=== PATIENT | male | born 1955 | race Caucasian/White ===

== ENCOUNTER → 2018-02-01 14:36 | Outpatient (CLI) | payer MEDICAID, SELFPAY | PROVIDERS: Visit Provider Internal Medicine Cardiovascular Disease | DX: R55 Syncope and collapse (principal) | CPT/HCPCS: 93225; 93226 ==

== ENCOUNTER → 2018-04-03 14:22 | Outpatient (REF) | payer MEDICAID, SELFPAY ==
[2018-04-03 17:30] LABS: Basophils % 0.5 % (0.1-2.0); Eosinophils # 0.2 K/mm3 (0.0-0.4); Eosinophils % 2.8 % (0.1-12.0); Hematocrit 42.4 % (42.0-52.0); Hemoglobin 13.9 g/dL (14.1-18.0); Lymphocytes # 1.5 K/mm3 (0.7-4.5); Lymphocytes % 24.3 K/mm3 (10-50); Mean Corpuscular HGB Conc 32.8 g/dL (31.8-35.4); Mean Corpuscular Hemoglobin 29.1 pg (27.0-31.2); Mean Corpuscular Volume 88.8 fl (80-94); Mean Platelet Volume 7.7 fl (7.4-10.4); Monocytes # 0.3 K/mm3 (0.1-1.0); Monocytes % 5.1 % (1.7-9.3); Neutrophils # 4.1 K/mm3 (1.8-7.8); Neutrophils % 67.4 % (37.0-80.0); Platelet Count 310 K/mm3 (142-424); Red Blood Count 4.78 M/mm3 (4.60-6.20); Red Cell Distribution Width 14.3 % (11.5-17.5); White Blood Count 6.1 K/mm3 (4.8-10.8)
[2018-04-03 17:45] LABS: Hemoglobin A1C 9.7 % (0.0-7.0)
[2018-04-03 18:14] LABS: Alanine Aminotransferase 37 U/L (12-78); Albumin/Globulin Ratio 0.8 (1.1-1.8); Alkaline Phosphatase 121 U/L (46-116); Anion Gap 10.7 mEq/L (5-15); Aspartate Amino Transferase 28 U/L (15-37); Bilirubin,Total 0.4 mg/dL (0.2-1.0); Blood Urea Nitrogen 19 mg/dL (7-18); Calcium 9.2 mg/dL (8.5-10.1); Carbon Dioxide 31 mmol/L (21.0-32.0); Chloride 101 mmol/L (98-107); Chol/HDL Ratio 3.5 (1-3.5); Cholesterol 205 mg/dL (140-200); Estimated Glomerular Filt Rate 51 ml/min (>60); GFR (African American) 62 ML/MIN (>60); Globulin 3.6 gm/dl (1.3-3.2); Glucose 284 mg/dL (74-106); HDL Cholesterol 59 mg/dL (27-67); LDL Cholesterol 124 mg/dL (0-130); Potassium 4.7 mmoL/L (3.5-5.1); Sodium 138 mmol/L (136-145); Thyroid Stimulating Hormone 2.63 uIU/ml (0.358-3.740); Total Protein,Serum 6.6 gm/dL (6.4-8.2); Triglycerides 111 mg/dL (30-200); VLDL Cholesterol 22 mg/dL (0-40)
[2018-04-07 12:53] LABS: Vitamin D 25 Hydroxy 22.1 ng/mL (30.0-100.0)
[2018-04-07 12:55] LABS: Creatinine, Urine 99.8 mg/dL (Not Estab.)
== END ==
LOC: LAB 14:22
PROVIDERS: Visit Provider Nurse Practitioner Family
DX: E11.9 Type 2 diabetes mellitus without complications (principal); R53.83 Other fatigue
CPT/HCPCS: 80053; 80061; 82043; 82570; 82652; 83036; 84443; 85025

== ENCOUNTER → 2018-04-09 12:51 | Outpatient (CLI) | payer MEDICAID, SELFPAY ==
--- NOTE | 2018-04-09 12:54 | MR_ITS ---
MR head/brain wo con HISTORY: Syncope and collapse, dizziness, off balance, headache and blurred vision ITS.REASON: syncope ORDERING PHYSICIAN: Sharri Gusman MD PATIENT AGE: 62 years Comparison: 01/18/2018 TECHNIQUE: Standard multiplanar multiecho sequences are performed without contrast. FINDINGS: No midline shift, mass effect, intracranial hemorrhage, or hydrocephalus. No evidence of acute infarction. There are encephalomalacia changes in the inferior aspect of the left cerebellar hemisphere consistent with an old infarction. There are a few scattered periventricular and subcortical T2 white matter hyperintensities nonspecific. There are a few perivascular dilated spaces within the basal ganglia. The hippocampal right are unremarkable in the temporal horns are symmetric. The pituitary and optic chiasm are unremarkable. No cerebellar ectopia. The upper cervical cord has an unremarkable appearance. The cerebellopontine angle, cerebellum, and brainstem are unremarkable. No mastoid effusion or sinus air-fluid level. Mild mucosal thickening involves the ethmoid sinuses on the left. There is a 2.3 cm area of heterogeneous signal intensity in the scalp on the right in the parietal area of questionable clinical significance. Please correlate with direct visualization. IMPRESSION: 1. No acute intracranial finding. 2. 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
== END ==
PROVIDERS: Family Provider Family Medicine; PCP Nurse Practitioner Family; Visit Provider Specialist
DX: E11.43 Type 2 diabetes mellitus with diabetic autonomic (poly)neuropathy (principal); I63.439 Cerebral infarction due to embolism of unspecified posterior cerebral artery; K21.9 Gastro-esophageal reflux disease without esophagitis; K31.84 Gastroparesis; R55 Syncope and collapse
CPT/HCPCS: 70551

== ENCOUNTER → 2018-09-19 09:24 | Outpatient (CLI) | payer MEDICAID, SELFPAY ==
--- NOTE | 2018-09-19 09:30 | US_ITS ---
US abdomen complete HISTORY: ITS.REASON: pain ORDERING PHYSICIAN: Fatuma Hernandez PATIENT AGE: 62 years COMPARISON: None FINDINGS: PANCREAS:Unremarkable. No obvious mass or abnormal fluid collection. No ductal dilatation LIVER:No focal liver lesions demonstrated. Homogeneous echogenicity. No intrahepatic biliary ductal dilatation evident. There is increase echogenicity of the liver consistent with fatty liver RIGHT KIDNEY:Unremarkable. Normal size and echogenicity. No hydronephrosis LEFT KIDNEY:Unremarkable. No hydronephrosis. Normal size and echogenicity. GALLBLADDER: The gallbladder is contracted and contains sludge. No stones are apparent. No gallbladder wall thickening or pericholecystic fluid. AORTA:No evidence of aneurysmal dilatation. SPLEEN:Borderline splenomegaly at 13 cm ASCITES:None demonstrated. IMPRESSION: 1. Fatty liver and borderline splenomegaly. 2. Contracted gallbladder with sludge
== END ==
PROVIDERS: PCP Nurse Practitioner Family; Visit Provider Nurse Practitioner Family
DX: R10.84 Generalized abdominal pain (principal)
CPT/HCPCS: 76700

== ENCOUNTER → 2018-10-03 09:48 | Outpatient (CLI) | payer MEDICAID, SELFPAY ==
--- NOTE | 2018-10-03 09:49 | NM_ITS ---
NM hepatobiliary w pharm HISTORY: Right upper quadrant pain. ITS.REASON: gallbladder sludge ORDERING PHYSICIAN: Fatuma Hernandez PATIENT AGE: 62 years COMPARISON: None DOSE: 7.82 mCi Tc Choletec. 2.3 MCG CCK HIDA under HISTORY: Right upper quadrant pain & nausea Following 7.28 millicuries Tc Choletec, images of the right upper quadrant were obtained. There is prompt uptake of radionuclide by the liver which is grossly unremarkable. Homogeneous appearance at liver,. Activity Common duct promptly visualized. Small bowel activity visualized. This initial pre-CCK portion of the study is normal. The gallbladder was allowed to fill out to 50 to 60 minutes which point 2.3 MCG micrograms CCK was administered by way infusion pump in the typical fashion. This results in87% percent fraction (normal greater than 50%; borderline 35-50%). Visual inspection confirmed robust at least 87% gallbladder ejection. Patient reported Minimal discomfort and pain with CCK administration IMPRESSION: 1. Normal functioning gallbladder . Robust 87% gallbladder ejection fraction following CCK. 2. Normal hepatobiliary scan
--- NOTE | 2018-10-03 12:17 | HMH.ITSHM ---
Current Home Medications as stated by this patient Franck Lam or lead generation representative. []TAMSULOSIN RANITIDINE OXYCODONE OMEPRAZOLE NITRO LISINOPRIL LEVOTHYROXINE ISOSORBIDE INSULIN GABAPENTIN FENOFIBRATE CETIRIZINE ATENOLOL ASA ESOMEPRAZOLE VITAMIN D2
== END ==
PROVIDERS: PCP Nurse Practitioner Family; Visit Provider Nurse Practitioner Family
DX: K82.8 Other specified diseases of gallbladder (principal); R10.9 Unspecified abdominal pain
CPT/HCPCS: 78227

== ENCOUNTER → 2018-12-09 17:57 | Outpatient (CLI) | payer MEDICAID, SELFPAY ==
[2018-12-09 18:44] LABS: Basophils # 0.1 K/mm3 (0-0.2); Basophils % 0.6 % (0.1-2.0); Eosinophils # 0.2 K/mm3 (0.0-0.4); Eosinophils % 2.1 % (0.1-12.0); Hematocrit 38.9 % (42.0-52.0); Hemoglobin 13.5 g/dL (14.1-18.0); Lymphocytes # 1.5 K/mm3 (0.7-4.5); Lymphocytes % 18.2 % (10-50); Mean Corpuscular HGB Conc 34.7 g/dL (31.8-35.4); Mean Corpuscular Hemoglobin 29.7 pg (27.0-31.2); Mean Corpuscular Volume 85.6 fl (80-94); Mean Platelet Volume 7.5 fl (7.4-10.4); Monocytes # 0.4 K/mm3 (0.1-1.0); Neutrophils # 5.9 K/mm3 (1.8-7.8); Neutrophils % 74.1 % (37.0-80.0); Platelet Count 263 K/mm3 (142-424); Red Blood Count 4.55 M/mm3 (4.60-6.20); Red Cell Distribution Width 13.3 % (11.5-17.5)
[2018-12-09 19:16] LABS: Alanine Aminotransferase 28 U/L (12-78); Albumin Level 2.7 gm/dL (3.4-5.0); Albumin/Globulin Ratio 0.8 (1.1-1.8); Alkaline Phosphatase 90 U/L (46-116); Anion Gap 14.1 mEq/L (5-15); Aspartate Amino Transferase 23 U/L (15-37); Bilirubin,Total 0.5 mg/dL (0.2-1.0); Blood Urea Nitrogen 27 mg/dL (7-18); Calcium 8.8 mg/dL (8.5-10.1); Carbon Dioxide 26 mmol/L (21.0-32.0); Chloride 102 mmol/L (98-107); Chol/HDL Ratio 3.6 (1-3.5); Cholesterol 200 mg/dL (140-200); Creatinine,Serum 1.78 mg/dL (0.70-1.30); Estimated Glomerular Filt Rate 39 ml/min (>60); GFR (African American) 47 ML/MIN (>60); Globulin 3.2 gm/dl (1.3-3.2); Glucose 311 mg/dL (74-106); HDL Cholesterol 56 mg/dL (27-67); LDL Cholesterol 112 mg/dL (0-130); Potassium 4.1 mmoL/L (3.5-5.1); Sodium 138 mmol/L (136-145); T4 (Thyroxine) 7.5 ug/dl (4.7-13.3); Total Protein,Serum 5.9 gm/dL (6.4-8.2); Triglycerides 159 mg/dL (30-200); VLDL Cholesterol 32 mg/dL (0-40)
[2018-12-09 19:23] LABS: Hemoglobin A1C 11.2 % (0.0-7.0)
[2018-12-12 08:08] LABS: Vitamin D 25 Hydroxy 26.3 ng/mL (30.0-100.0)
== END ==
PROVIDERS: Visit Provider Nurse Practitioner Family
DX: E11.9 Type 2 diabetes mellitus without complications (principal); Z79.4 Long term (current) use of insulin; E55.9 Vitamin D deficiency, unspecified
CPT/HCPCS: 80053; 80061; 82652; 83036; 84436; 84443; 85025

== ENCOUNTER → 2019-05-07 10:04 | Outpatient (CLI) | payer MEDICAID, SELFPAY ==
--- NOTE | 2019-05-07 10:18 | XR_ITS ---
PROCEDURE: XR FOOT WT BEARING RT 3V CLINICAL INDICATION: diabetic foot COMPARISON: No exams were available for comparison FINDINGS: No fracture or dislocation. No lytic or blastic change. There is normal mineralization. The joint spaces are well-preserved. No significant degenerative/arthritic changes. No erosive changes evident. Other findings:Bandage artifact overlies the metatarsophalangeal junction dorsally. There is diffuse vascular calcification. No obvious bony destructive process. There is an os cuboid within accessory coarse calcification lateral to the cuboid and may be related to heterotopic ossification. IMPRESSION: Vascular calcification. Unusual well-circumscribed soft tissue calcification lateral to the cuboid Dictated by: Lalo Kelly MD 05/07/2019 13:13 Electronically signed by Lalo Kelly MD in [place] 05/07/2019 13:13
--- NOTE | 2019-05-07 10:18 | XR_ITS ---
PROCEDURE: XR FOOT WT BEARING LT 3V CLINICAL INDICATION: diabetic foot Foot pain COMPARISON: No exams were available for comparison FINDINGS: No fracture or dislocation. No lytic or blastic change. There is normal mineralization. The joint spaces are well-preserved. No significant degenerative/arthritic changes. No erosive changes evident. Other findings:There is diffuse vascular calcification. IMPRESSION: No acute findings. Dictated by: Lalo Kelly MD 05/07/2019 13:10 Electronically signed by Lalo Kelly MD in [place] 05/07/2019 13:10
[2019-05-07 11:07] LABS: Basophils % 0.6 % (0.1-2.0); Eosinophils # 0.1 K/mm3 (0.0-0.4); Eosinophils % 2.3 % (0.1-12.0); Hematocrit 33.5 % (42.0-52.0); Hemoglobin 10.2 g/dL (14.1-18.0); Lymphocytes # 0.8 K/mm3 (0.7-4.5); Lymphocytes % 12.5 % (10-50); Mean Corpuscular HGB Conc 30.5 g/dL (31.8-35.4); Mean Corpuscular Hemoglobin 28.3 pg (27.0-31.2); Mean Corpuscular Volume 92.7 fl (80-94); Mean Platelet Volume 7.6 fl (7.4-10.4); Monocytes # 0.4 K/mm3 (0.1-1.0); Monocytes % 6.8 % (1.7-9.3); Neutrophils # 4.9 K/mm3 (1.8-7.8); Neutrophils % 77.8 % (37.0-80.0); Platelet Count 426 K/mm3 (142-424); Red Blood Count 3.62 M/mm3 (4.60-6.20); Red Cell Distribution Width 14.1 % (11.5-17.5); White Blood Count 6.3 K/mm3 (4.8-10.8)
[2019-05-07 11:56] LABS: Erythrocyte Sedimentation Rate 82 mm/hr (0-20)
[2019-05-07 12:29] LABS: Alanine Aminotransferase 13 U/L (12-78); Albumin Level 2.5 gm/dL (3.4-5.0); Albumin/Globulin Ratio 0.6 (1.1-1.8); Alkaline Phosphatase 73 U/L (46-116); Anion Gap 8.4 mEq/L (5-15); Aspartate Amino Transferase 22 U/L (15-37); Bilirubin,Total 0.3 mg/dL (0.2-1.0); Blood Urea Nitrogen 25 mg/dL (7-18); C-Reactive Protein 0.4 mg/dL (0.0-0.9); Calcium 8.8 mg/dL (8.5-10.1); Carbon Dioxide 32 mmol/L (21.0-32.0); Chloride 99 mmol/L (98-107); Creatinine,Serum 2.09 mg/dL (0.70-1.30); Estimated Glomerular Filt Rate 32 ml/min (>60); GFR (African American) 39 ML/MIN (>60); Globulin 4.1 gm/dl (1.3-3.2); Glucose 258 mg/dL (74-106); Potassium 4.4 mmoL/L (3.5-5.1); Sodium 135 mmol/L (136-145); Total Protein,Serum 6.6 gm/dL (6.4-8.2)
== END ==
PROVIDERS: PCP Emergency Medicine; Visit Provider Podiatrist
DX: Z51.89 Encounter for other specified aftercare (principal); E11.621 Type 2 diabetes mellitus with foot ulcer; L97.418 Non-pressure chronic ulcer of right heel and midfoot with other specified severity; Z79.4 Long term (current) use of insulin
CPT/HCPCS: 36415; 73630; 80053; 85025; 85651; 86140; 87070; 87077; 87186; 87205

== ENCOUNTER 2019-06-02 13:30 | Outpatient (CLI) | payer MEDICAID, SELFPAY ==
[2019-06-02 14:45] LABS: INR 11.12 (0.9-1.1); Prothrombin Time 103.1 seconds (9.4-11.8)
[2019-06-02 15:31] LABS: PHA INR Fingerstick 11.1 (0.9-1.1)
== END 2019-06-02 15:26 | disposition home or self-care (01) ==
LOC: ACC 14:20 → INF 15:10
PROVIDERS: PCP Emergency Medicine; Visit Provider Emergency Medicine
DX: Z51.81 Encounter for therapeutic drug level monitoring (principal); Z79.01 Long term (current) use of anticoagulants; I48.91 Unspecified atrial fibrillation
CPT/HCPCS: 36415; 85610; 96372; 99211; G0463

== ENCOUNTER → 2019-06-05 14:12 | Outpatient (CLI) | payer MEDICAID, SELFPAY ==
[2019-06-05 14:45] LABS: Prothrombin Time 18.2 seconds (9.4-11.8)
--- NOTE | 2019-06-18 15:48 | HMH.PHAINT ---
ACC-PATIENT MISSED APPOINT ON 06/15/19. POA CALLED TO RESCHEDULE THE NEXT DAY FOR 06/18/19. MISSED APPOINTMENT ON 06/18 WELL. CALLED AND LEFT MESSAGES WITH POA AND BROTHER. LEFT LAB ORDER FOR INR IN OUTPATIENT LAB. BROTHER RETURNED CALL AND INDICATED HE WOULD TRY TO GET HIM IN IF POSSIBLE THIS WEEK. IF NOT NEXT , 06/23. EXPRESSED CONCERN ABOUT WARFARIN AND INR WITHOUT BEING CHECKED.
== END ==
PROVIDERS: Visit Provider Emergency Medicine
DX: Z51.81 Encounter for therapeutic drug level monitoring (principal); Z79.01 Long term (current) use of anticoagulants
CPT/HCPCS: 36415; 85610

== ENCOUNTER 2019-06-09 15:26 | Outpatient (CLI) | payer MEDICAID, SELFPAY ==
[2019-06-09 15:33] LABS: PHA INR Fingerstick 3.9 (0.9-1.1)
== END 2019-06-09 15:35 | disposition home or self-care (01) ==
LOC: ACC 15:29
PROVIDERS: PCP Emergency Medicine; Visit Provider Emergency Medicine
DX: Z51.81 Encounter for therapeutic drug level monitoring (principal); Z79.01 Long term (current) use of anticoagulants; I48.91 Unspecified atrial fibrillation
CPT/HCPCS: 85610; 99211; G0463

== ENCOUNTER 2019-06-21 11:07 | Inpatient (IN) ==
[2019-06-21 11:25] LABS: Microscopic, Urine URINE MICROSCOPIC (MICROSCOPIC)
--- NOTE | 2019-06-21 11:25 | Emergency Department Note ---
ED Disposition Clinical Impression: Gastritis, Vomiting, Urinary retention, Constipation, Acute kidney injury Disposition: Admitted as Observation Condition on Discharge: Fair Instructions: DI for Nausea -- Adult Referrals: Provider,Referral, MD [Primary Care Provider] - Time of Disposition: 15:56 - Critical Care Critical Care Time: No Attestation: On 06/21/19, the high probability of a clinically significant, sudden or life threatening deterioration of the following system(s) required my full and direct attention, intervention and personal management. The time I documented below is in addition to time spent performing reported procedures but includes the following listed in this critical care notation. Medical Decision Making - Medical Records Medical records reviewed: Yes: I reviewed the patient's medical records. - Lavon Inquiry Pt receiving controlled substance: No Lavon was queried for this patient: No Risks and benefits of using a controlled substance: were not discussed with pt by me Vital Signs: 06/21/19 11:08 06/21/19 11:19 06/21/19 12:27 Temperature 97.9 F 97.9 F Temperature Source Oral Oral Pulse Rate [Right Radial] 57 L 57 L 65 Respiratory Rate 18 18 Blood Pressure [Right Arm] 136/76 136/76 130/63 Blood Pressure Mean [Right Arm] 96 96 85 02 Sat by Pulse Oximetry 100 100 99 Oxygen Delivery Method Room Air Room Air 06/21/19 13:14 06/21/19 14:27 Temperature Temperature Source Pulse Rate [Right Radial] 62 64 Respiratory Rate Blood Pressure [Right Arm] 148/64 H 163/51 H Blood Pressure Mean [Right Arm] 92 88 02 Sat by Pulse Oximetry 92 L 100 Oxygen Delivery Method - Lab Data Lab results reviewed: Yes: I reviewed the patient's lab results. Lab Results 06/21/19 11:15: Urine Color Yellow, Urine Appearance Sl cloudy, Urine pH 5.5, Ur Specific [place] >= 1.030, Urine Protein 2+, Urine Glucose (UA) Trace, Urine Ketones Negative, Urine Blood Trace-l, Urine Nitrate Negative, Urine Bilirubin Negative, Urine Urobilinogen 0.2, Ur Leukocyte Esterase Negative, Urine RBC Occasional, Urine WBC None, Ur Squamous Epith Cells Occasional, Urine Bacteria Trace 06/21/19 11:23: WBC 6.6, RBC 3.71 L, Hgb 10.7 L, Hct 33.2 L, MCV 89.7, MCH 28.9, MCHC 32.2, RDW 14.2, Plt Count 357, MPV 8.9, Neut % (Auto) 77.0, Lymph % (Auto) 16.9, [place] % (Auto) 5.0, Eos % (Auto) 0.6, Baso % (Auto) 0.5, Neut # (Auto) 5.1, Lymph # (Auto) 1.1, [place] # (Auto) 0.3, Eos # (Auto) 0.0, Baso # (Auto) 0.0 06/21/19 11:23: PT 15.1 H, INR 1.48 H 06/21/19 11:23: Sodium 133 L, Potassium 5.4 H, Chloride 99, Carbon Dioxide 28, Anion Gap 11.4, BUN 80 H, Creatinine 4.76 H, Estimated Creat Clear 18, Estimated GFR 12 L*, Est GFR ( Amer) 15 L*, Glucose 239 H, Calcium 8.8, Troponin I < 0.02 06/21/19 11:23: Amylase 45, Lipase 203 06/21/19 15:25: Sodium 133 L, Potassium 5.3 H, Chloride 100, Carbon Dioxide 25, Anion Gap 13.3, BUN 72 H, Creatinine 4.25 H, Estimated Creat Clear 20, Estimated GFR 14 L*, Est GFR ( Amer) 17 L*, Glucose 255 H, Calcium 8.5 Result diagrams: 06/21/19 11:23 06/21/19 15:25 Orders (Tests/Meds): ED MEDICATIONS Generic Name Dose Route Start Last Admin Trade Name Freq PRN Reason Stop Dose Admin Sodium Chloride 10 ml 06/21/19 13:21 06/21/19 13:40 Sodium Chloride 0.9% 10ml Vial IV 07/21/19 13:20 10 ml NEEDED PRN Administration dilute protonix Tamsulosin HCl 0.4 mg 06/21/19 21:00 06/21/19 13:46 Flomax 0.4mg Capsule PO 07/21/19 20:59 0.4 mg HS NAOMI Administration Discontinued Medications Generic Name Dose Route Start Last Admin Trade Name Freq PRN Reason Stop Dose Admin Sodium Chloride 1,000 mls @ 999 mls/hr 06/21/19 11:15 06/21/19 11:20 Sod Chlor 0.9% 1000ml Bag IV 06/21/19 12:15 999 mls/hr .Q1H1M NAOMI Administration Ondansetron HCl 4 mg 06/21/19 13:30 06/21/19 13:40 Zofran 4mg/2ml Vial IV 06/21/19 13:31 4 mg ONCE ONE Administration Pantoprazole Sodium 40 mg 06/21/19 13:21 06/21/19 13:40 Protonix 40mg Vial IV 06/21/19 13:22 40 mg ONCE ONE Administration - Physician Consults Physician Consulted: vito Time: 15:55 Reason -: Admission, Pt condition Nausea/Vomiting/Diarrhea HPI - General Chief complaint: Nausea/Vomiting/Diarrhea Stated complaint: nausea, vomiting Time Seen by Provider: 06/21/19 11:22 Mode of Arrival: EMS Source of Information: Patient Limitations: Physical Limitations Description of Symptoms (Recalled from ER Triage Doc. by RN): pt brother states that patient has been having nausea/vomiting and overall not feeling well. states that the patient hasnt been eating well and has had decreased appetite. patient denies any pain and states that he feels much better after zofran given iv by ems. - History of Present Illness HPI Narrative: Decreased appetite x 2-3 days. Vomits whatever he eats, mainly efusing fluids and solid po. No pain per se - Related Data Home Medications Medication Instructions Recorded Confirmed insulin detemir (U-100) 100 26 unit SQ BID 30 Days #15.6 ml 12/09/18 06/21/19 unit/mL (3 mL) subcutaneous pen insulin lispro (U-100) 100 unit/mL 50 unit SQ BID ml 12/09/18 06/21/19 subcutaneous pen Amiodarone HCl [Amiodarone 100mg 200 mg PO DAILY 03/24/19 06/21/19 Tab] Atorvastatin Calcium [Atorvastatin 80 mg PO HS 03/24/19 06/21/19 80mg Tab] Gabapentin [Gabapentin 100mg Cap] 100 mg PO TID 03/24/19 06/21/19 Lisinopril [Lisinopril 40mg Tablet] 40 mg PO DAILY 03/24/19 06/21/19 duloxetine 30 mg capsule,delayed 30 mg PO DAILY #30 cap 05/07/19 06/21/19 release Bumetanide 1 mg PO DAILY 06/18/19 06/21/19 Carvedilol [Carvedilol 25mg Tab] 25 mg PO BID 06/18/19 06/21/19 Docusate Sodium 100 mg PO DAILYP PRN 06/18/19 06/21/19 Fenofibrate 160 mg PO DAILY 06/18/19 06/21/19 Isosorbide Mononitrate [Imdur 30mg 30 mg PO DAILY 06/18/19 06/21/19 ER tablet] LORazepam [Ativan 0.5mg 0.5 mg PO BIDP PRN 06/18/19 06/21/19 tablet] Pen Needle, Diabetic [Techlite Pen 0 each SQ DIRECTED 06/18/19 06/21/19 Needle] Ergocalciferol (Vitamin D2) 1 tab PO DAILY 06/21/19 06/21/19 [Drisdol 50,000 units (1.25mg) capsule] Oxycodone HCl/Acetaminophen 1 tab PO Q6 06/21/19 06/21/19 [Oxycodone W/Apap 325mg Tablet] Warfarin Sodium [Coumadin 5mg 5 mg PO DAILY 06/21/19 06/21/19 tablet] Previous Rx's Medication Instructions Recorded nitroglycerin 0.4 mg sublingual 0.4 mg SUBLINGUAL Q5-15M PRN #30 08/26/18 tablet tab levothyroxine 50 mcg tablet 50 mcg PO DAILY #90 tab 01/09/19 omeprazole 40 mg capsule,delayed 40 mg PO DAILY #90 cap 03/16/19 release ranitidine 150 mg tablet 150 mg PO DAILY #90 tab 03/16/19 ondansetron HCl 4 mg tablet 4 mg PO TID PRN #30 tab 03/17/19 aspirin 81 mg chewable tablet 81 mg PO DAILY #90 tab 03/30/19 Allergies Allergy/AdvReac Type Severity Reaction Status Date / Time latex Allergy Verified 06/21/19 11:13 Clopidogrel Allergy Uncoded 05/08/19 11:06 [facility] History - Hepatitis A Screen Drug use history?: No High risk sexual behaviors?: No History of sexually transmitted infection?: No Currently employed?: No Childcare worker?: No Do you have indoor plumbing?: Yes Do you have electricity?: Yes Attestation statement:: This patient has been screened for Hepatitis A risk factors. I have reviewed the patient's past medical history: Yes Medical History: Reports:: Anxiety, Cancer, Coronary Artery Disease, Depression, Diabetes Mellitus Type 2, Gastroesophageal Reflux Disease(GERD), Hypertension, Myocardial Infarction, Renal Disease, Transient Ischemic Attacks (TIA) Other Medical History: Reports: Arthritis, Cataracts, Thyroid Disease Other Surgeries: Yes: CABG, Cardiac Surgery, Colonoscopy, Coronary Stent, Skin Cancer Excision, Other Amputation: No Fractures: No Comment: right eye - Social History Smoking Status: Former smoker Alcohol Intake: never Alcohol Intake Frequency:: other Substance Use Type: denies use Occupational Status: disabled Housing: house Household Members: children - Psychiatric History Pschychiatric History:: Reports:: Anxiety, Depression Family Hx:: Coronary Artery Disease, Hypertension ROS Obtained: Yes All systems reviewed & no additional complaints - Constitutional Constitutional: Denies fever(s) - Eyes Eyes: Denies change in vision - ENT Ears, Nose, Mouth, and Throat: Denies sinus pain, Denies sinus pressure, Denies sore throat, Denies throat swelling - Cardiovascular Cardiovascular: Denies chest pain, Denies chest pain at rest, Denies dyspnea - Respiratory Respiratory: No chest congestion, No cough, No dyspnea - Gastrointestinal Gastrointestingal: Reports: constipation, nausea, vomiting. Denies: abdominal pain, diarrhea - Genitourinary Male Genitourinary: Denies flank pain, Denies hematuria - Musculoskeletal Musculoskeletal: Denies joint pain, Denies joint stiffness, Denies joint swelling - Integumentary/Breasts Skin/Breast: Denies skin swelling, Denies unusual bruising - Neurologic Neurologic: Denies abnormal speech, Reports other (old stroke changes, particu larly to speech) - Hematologic/Lymphatic Henatologic/Lymphatic: Denies easy bleeding, Denies easy bruising Physical Exam - General General appearance: alert, in no apparent distress - Head Head exam: atraumatic, normocephalic, normal inspection - Eye Eye exam: Present: normal appearance, PERRL, EOMI - ENT ENT exam: Present: normal exam, normal oropharynx, mucous membranes moist, TM's normal bilaterally, normal external ear exam - Neck Neck exam: Present: normal inspection, full ROM, trachea midline. Absent: meningismus, lymphadenopathy - Respiratory Respiratory exam: Present: normal lung sounds bilaterally. Absent: respiratory distress - Cardiovascular Cardiovascular exam: Present: regular rate, normal rhythm, systolic murmur, other (grade 3). Absent: JVD - Abdominal Exam Abdominal exam: Present: soft, normal bowel sounds. Absent: distention, tenderness, guarding - Back Exam Back exam: Present: normal inspection. Absent: tenderness - Neurological Exam Neurological exam: Present: alert, oriented X3 - Psychiatric Psychiatric exam: Present: normal affect, normal mood - Skin Skin exam: Present: warm, dry, intact, normal color
[2019-06-21 11:26] LABS: Appearance,Urine SL CLOUDY (Clear); Bilirubin,Urine Negative (Negative); Blood, Urine TRACE-L (Negative); Color,Urine YELLOW (Yellow); Glucose,Urine (UA) TRACE (Negative); Ketones,Urine Negative (Negative); Leukocyte Esterase,Urine Negative (Negative); PH,Urine 5.5 (5.0-8.5); Protein,Urine 2+ (Negative); Specific Gravity, Urine >= 1.030 (1.005-1.030); Urobilinogen,Urine 0.2 EU/dl (0.2)
[2019-06-21 11:32] LABS: Basophils % 0.5 % (0.1-2.0); Eosinophils % 0.6 % (0.1-12.0); Hematocrit 33.2 % (42.0-52.0); Hemoglobin 10.7 g/dL (14.1-18.0); Lymphocytes # 1.1 K/mm3 (0.7-4.5); Lymphocytes % 16.9 % (10-50); Mean Corpuscular HGB Conc 32.2 g/dL (31.8-35.4); Mean Corpuscular Volume 89.7 fl (80-94); Mean Platelet Volume 8.9 fl (7.4-10.4); Monocytes # 0.3 K/mm3 (0.1-1.0); Neutrophils # 5.1 K/mm3 (1.8-7.8); Platelet Count 357 K/mm3 (142-424); Red Blood Count 3.71 M/mm3 (4.60-6.20); Red Cell Distribution Width 14.2 % (11.5-17.5); White Blood Count 6.6 K/mm3 (4.8-10.8)
[2019-06-21 11:36] LABS: Bacteria,Urine Trace /lpf; RBC,Urine Occasional #/hpf (0-3); Squamous Epithelial Cell,Urine Occasional #/hpf (0-5)
[2019-06-21 11:41] LABS: INR 1.48 (0.9-1.1); Prothrombin Time 15.1 seconds (9.4-11.8)
[2019-06-21 11:50] LABS: Anion Gap 11.4 mEq/L (5-15); Blood Urea Nitrogen 80 mg/dL (7-18); Calcium 8.8 mg/dL (8.5-10.1); Carbon Dioxide 28 mmol/L (21.0-32.0); Chloride 99 mmol/L (98-107); Glucose 239 mg/dL (74-106); Sodium 133 mmol/L (136-145)
[2019-06-21 11:51] LABS: Amylase 45 U/L (25-115)
[2019-06-21 15:44] LABS: Anion Gap 13.3 mEq/L (5-15); Calcium 8.5 mg/dL (8.5-10.1)
--- NOTE | 2019-06-21 18:40 | History & Physical Report ---
*Admission Date: 06/21/19 *Chief complaint: nausea *History of present illness: 63 yr old male presented to ed with c/o having nausea/vomiting and overall not feeling well. states that the patient hasn't been eating well and has had decreased appetite for 2 days. 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 [facility] History I have reviewed the patient's past medical history: Yes Medical History: Reports:: Anxiety, Cancer, Coronary Artery Disease, Depression, Diabetes Mellitus Type 2, Gastroesophageal Reflux Disease(GERD), Hypertension, MRSA, Myocardial Infarction, Renal Disease, Transient Ischemic Attacks (TIA) *Have you ever received a pneumonia vaccine?: Yes *Have you received a flu vaccine this season?: No (doesn't think so) Other Medical History: Reports: Arthritis, Cataracts, Thyroid Disease Other Surgeries: Yes: CABG, Cardiac Surgery, Colonoscopy, Coronary Stent, Skin Cancer Excision, Other Amputation: No Fractures: No - *Social History Smoking Status: Former smoker Smoking End Date: 1998 Alcohol Intake: never Alcohol Intake Frequency:: other Substance Use Type: denies use *Occupational Status:: disabled Housing: house Household Members: family, children *Travel in the last 8 weeks: None - Psychiatric History Pschychiatric History:: Reports:: Anxiety, Depression Family Hx:: Coronary Artery Disease, Hypertension Review of Systems - Review of Systems Review of systems:: pertinent systems reviewed and negative unless documented below - Constitutional Denies body ache(s), Denies fever(s) - Eyes Denies blurry vision - ENT Denies bleeding gums, Denies nasal congestion - *Cardiovascular Denies chest pain at rest, Denies chest pain with activity - *Respiratory Denies change in phlegm color, Denies chest congestion, Denies cough, Denies excessive phlegm production - *Gastrointestinal Reports change in bowel habits, Reports nausea - *Genitourinary Reports difficulty urinating - *Musculoskeletal Reports abnormal walking - Integumentary/Breasts Reports skin ulcer, Denies rash - *Neurologic Reports weakness, Reports other (old stroke changes, particularly to speech), Denies abnormal speech - Psychiatric Denies anxiety - Endocrine Denies excessive sweating - Hematologic/Lymphatic Denies easy bruising Meds Home Medications Medication Instructions Recorded Confirmed Type nitroglycerin 0.4 mg sublingual 0.4 mg SUBLINGUAL Q5-15M PRN #30 08/26/18 06/21/19 Rx tablet tab insulin detemir (U-100) 100 26 unit SQ BID 30 Days #15.6 ml 12/09/18 06/21/19 H istory unit/mL (3 mL) subcutaneous pen insulin lispro (U-100) 100 unit/mL 50 unit SQ BID ml 12/09/18 06/21/19 History subcutaneous pen levothyroxine 50 mcg tablet 50 mcg PO DAILY #90 tab 01/09/19 06/21/19 Rx omeprazole 40 mg capsule,delayed 40 mg PO DAILY #90 cap 03/16/19 06/21/19 Rx release ranitidine 150 mg tablet 150 mg PO DAILY #90 tab 03/16/19 06/21/19 Rx ondansetron HCl 4 mg tablet 4 mg PO TID PRN #30 tab 03/17/19 06/21/19 Rx Amiodarone HCl [Amiodarone 100mg 200 mg PO DAILY 03/24/19 06/21/19 History Tab] Atorvastatin Calcium [Atorvastatin 80 mg PO HS 03/24/19 06/21/19 History 80mg Tab] Gabapentin [Gabapentin 100mg Cap] 100 mg PO TID 03/24/19 06/21/19 History Lisinopril [Lisinopril 40mg Tablet] 40 mg PO DAILY 03/24/19 06/21/19 History aspirin 81 mg chewable tablet 81 mg PO DAILY #90 tab 03/30/19 06/21/19 Rx duloxetine 30 mg capsule,delayed 30 mg PO DAILY #30 cap 05/07/19 06/21/19 History release Bumetanide 1 mg PO BID 06/18/19 06/21/19 History Carvedilol [Carvedilol 25mg Tab] 25 mg PO BID 06/18/19 06/21/19 History Docusate Sodium 100 mg PO DAILYP PRN 06/18/19 06/21/19 History Fenofibrate 160 mg PO DAILY 06/18/19 06/21/19 History Isosorbide Mononitrate [Imdur 30mg 30 mg PO DAILY 06/18/19 06/21/19 History ER tablet] LORazepam [Ativan 0.5mg 0.5 mg PO BIDP PRN 06/18/19 06/21/19 History tablet] Pen Needle, Diabetic [Techlite Pen 0 each SQ DIRECTED 06/18/19 06/21/19 History Needle] Ergocalciferol (Vitamin D2) 1 tab PO DAILY 06/21/19 06/21/19 History [Drisdol 50,000 units (1.25mg) capsule] Oxycodone HCl/Acetaminophen 1 tab PO Q6 06/21/19 06/21/19 History [Oxycodone W/Apap 325mg Tablet] Sennosides [Chocolated Laxative] 30 mg PO BID PRN 06/21/19 06/21/19 History Warfarin Sodium [Coumadin 5mg 5 mg PO DAILY 06/21/19 06/21/19 History tablet] Allergies Allergy/AdvReac Type Severity Reaction Status Date / Time latex Allergy Verified 06/21/19 11:13 Clopidogrel Allergy Uncoded 05/08/19 11:06 Exam Vital signs and Labs for Last 24 Hours: Temp Pulse Resp BP Pulse Ox 97.6 F 62 18 143/52 H 97 06/21/19 17:00 06/21/19 17:00 06/21/19 17:00 06/21/19 17:00 06/21/19 17:00 Laboratory Results - last 24 hr 06/21/19 11:15: Urine Color Yellow, Urine Appearance Sl cloudy, Urine pH 5.5, Ur Specific [place] >= 1.030, Urine Protein 2+, Urine Glucose (UA) Trace, Urine Ketones Negative, Urine Blood Trace-l, Urine Nitrate Negative, Urine Bilirubin Negative, Urine Urobilinogen 0.2, Ur Leukocyte Esterase Negative, Urine RBC Occasional, Urine WBC None, Ur Squamous Epith Cells Occasional, Urine Bacteria Trace 06/21/19 11:23: WBC 6.6, RBC 3.71 L, Hgb 10.7 L, Hct 33.2 L, MCV 89.7, MCH 28.9, MCHC 32.2, RDW 14.2, Plt Count 357, MPV 8.9, Neut % (Auto) 77.0, Lymph % (Auto) 16.9, [place] % (Auto) 5.0, Eos % (Auto) 0.6, Baso % (Auto) 0.5, Neut # (Auto) 5.1, Lymph # (Auto) 1.1, [place] # (Auto) 0.3, Eos # (Auto) 0.0, Baso # (Auto) 0.0 06/21/19 11:23: PT 15.1 H, INR 1.48 H 06/21/19 11:23: Sodium 133 L, Potassium 5.4 H, Chloride 99, Carbon Dioxide 28, Anion Gap 11.4, BUN 80 H, Creatinine 4.76 H, Estimated Creat Clear 18, Estimated GFR 12 L*, Est GFR ( Amer) 15 L*, Glucose 239 H, Calcium 8.8, Troponin I < 0.02 06/21/19 11:23: Amylase 45, Lipase 203 06/21/19 15:25: Sodium 133 L, Potassium 5.3 H, Chloride 100, Carbon Dioxide 25, Anion Gap 13.3, BUN 72 H, Creatinine 4.25 H, Estimated Creat Clear 20, Estimated GFR 14 L*, Est GFR ( Amer) 17 L*, Glucose 255 H, Calcium 8.5 I & O for Last 24 hours: Intake & Output 06/19/19 06/20/19 06/21/19 06/22/19 11:59 11:59 11:59 11:59 Intake Total 2360 / 2360 Output Total 1000 / 1000 Balance 1360 / 1360 Weight 175 lb 194 lb 6 oz - Constitutional no acute distress - *Routine HEENT Exam Head: Present: normocephalic Eye: Present: PERRL ENT: Present: mucous membranes moist - *Routine Neck Exam Present: supple. Absent: lymphadenopathy - *Routine Respiratory Exam Present: CTA bilaterally - *Routine Cardiovascular Exam Present: RRR, murmur - *Routine Abdominal Exam Present: soft, normoactive bowel sounds, tenderness - *Routine Extremities Exam Present: full ROM, normal capillary refill. Absent: cyanosis, clubbing, edema - *Routine Skin Exam Present: warm. Absent: rash Comments: black areas to lateral great toe, second toe and pinky toe. scattered scabbed areas to top of foot on rt - *Routine Neurological Exam Present: alert, oriented X3 speech is garbbled and pt gets upset and will cus then will blurt of what he is trying to say. at times he will try to answer then say I had a stroke I dont thi nk right. - Routine Psychiatric Exam Present: normal affect Assessment and Plan (1) Acute kidney injury Current visit: Yes Status: Acute Category: Medical Code(s): N17.9 - Acute kidney failure, unspecified (2) Constipation Current visit: Yes Status: Acute Category: Medical Code(s): K59.00 - Constipation, unspecified (3) Gastritis Current visit: Yes Status: Acute Category: Medical Code(s): K29.70 - Gastritis, unspecified, without bleeding (4) Urinary retention Current visit: Yes Status: Acute Category: Medical Code(s): R33.9 - Retention of urine, unspecified (5) Vomiting Current visit: Yes Status: Acute Category: Medical Code(s): R11.10 - Vomiting, unspecified
[2019-06-22 05:44] LABS: Basophils % 0.7 % (0.1-2.0); Eosinophils % 0.7 % (0.1-12.0); Hemoglobin 9.3 g/dL (14.1-18.0); Lymphocytes # 1.4 K/mm3 (0.7-4.5); Lymphocytes % 29.6 % (10-50); Mean Corpuscular HGB Conc 32.1 g/dL (31.8-35.4); Mean Corpuscular Volume 89.7 fl (80-94); Mean Platelet Volume 9.2 fl (7.4-10.4); Monocytes # 0.3 K/mm3 (0.1-1.0); Monocytes % 6.5 % (1.7-9.3); Neutrophils % 62.5 % (37.0-80.0); Platelet Count 284 K/mm3 (142-424); Red Blood Count 3.23 M/mm3 (4.60-6.20); Red Cell Distribution Width 14.1 % (11.5-17.5); White Blood Count 4.8 K/mm3 (4.8-10.8)
[2019-06-22 05:54] LABS: Calcium 8.3 mg/dL (8.5-10.1)
--- NOTE | 2019-06-22 07:03 | Pharmacy Consult Notes ---
[facility] Pharmacy VTE Monitoring - Patient Demographics Admission date: 06/21/19 Report Date: 06/22/19 Time: 07:03 Allergies/Adverse Reactions: Patient Allergies latex Allergy (Verified 06/21/19 11:13) Clopidogrel Allergy (Uncoded 05/08/19 11:06) Height: 1.83 m Weight: 90.356 kg Patient Problems: Current Active Problems Gastritis (Acute) Vomiting (Acute) Urinary retention (Acute) Constipation (Acute) Acute kidney injury (Acute) - VTE Risk Labs: VTE Related Lab Results Hgb 9.3 g/dL (14.1-18.0) L D 06/22/19 05:30 Hct 29.0 % (42.0-52.0) L 06/22/19 05:30 Plt Count 284 K/mm3 (142-424) 06/22/19 05:30 PT 15.1 seconds (9.4-11.8) H 06/21/19 11:23 INR 1.48 (0.9-1.1) H 06/21/19 11:23 BUN 61 mg/dL (7-18) H 06/22/19 05:30 Creatinine 3.51 mg/dL (0.70-1.30) H 06/22/19 05:30 Estimated Creat Clear 28 mL/min (50-200) 06/22/19 05:30 Was VTE Risk Assessment Performed: Yes VTE Score: 10 VTE Risk Level: Moderate Risk - Prophylaxis VTE Prophylaxis Ordered?: Yes Types of VTE Prophylaxis: Pharmacological Pharmacologic Type: Warfarin - VTE Diagnosis Confirmed Treatment or plan recommended: Continue Current Treatment
--- NOTE | 2019-06-22 12:30 | Progress Note ---
Internal Medicine - PN: Subj *Date: 06/22/19 *Time: 12:27 Interval history: doing better - no hematuria- blood work better Exam Vital signs and Labs for Last 24 Hours: Temp Pulse Resp BP Pulse Ox 97.6 F 57 L 17 122/32 L 100 06/22/19 08:00 06/22/19 08:00 06/22/19 08:00 06/22/19 08:00 06/22/19 08:00 Laboratory Results - last 24 hr 06/21/19 15:25: Sodium 133 L, Potassium 5.3 H, Chloride 100, Carbon Dioxide 25, Anion Gap 13.3, BUN 72 H, Creatinine 4.25 H, Estimated Creat Clear 20, Estimated GFR 14 L*, Est GFR ( Amer) 17 L*, Glucose 255 H, Calcium 8.5 06/21/19 20:13: POC Glucose 263 H 06/22/19 05:30: WBC 4.8 D, RBC 3.23 L, Hgb 9.3 L D, Hct 29.0 L, MCV 89.7, MCH 28.8, MCHC 32.1, RDW 14.1, Plt Count 284, MPV 9.2, Neut % (Auto) 62.5, Lymph % (Auto) 29.6, Luna % (Auto) 6.5, Eos % (Auto) 0.7, Baso % (Auto) 0.7, Neut # (Auto) 3.0, Lymph # (Auto) 1.4, Luna # (Auto) 0.3, Eos # (Auto) 0.0, Baso # (Auto) 0.0 06/22/19 05:30: Sodium 135 L, Potassium 5.0, Chloride 104, Carbon Dioxide 25, Anion Gap 11.0, BUN 61 H, Creatinine 3.51 H, Estimated Creat Clear 28, Estimated GFR 18 L*, Est GFR ( Amer) 21 L D, Glucose 150 H D, Calcium 8.3 L 06/22/19 05:50: POC Glucose 151 H 06/22/19 11:25: POC Glucose 221 H I & O for Last 24 hours: Intake & Output 06/20/19 06/21/19 06/22/19 06/23/19 11:59 11:59 11:59 11:59 Intake Total 4051 / 4051 Output Total 1900 / 1900 Balance 2151 / 2151 Weight 175 lb 199 lb 3.2 oz - Constitutional no acute distress - *Routine HEENT Exam Head: Present: normocephalic Eye: Present: EOMI, PERRL ENT: Present: mucous membranes dry - *Routine Neck Exam Absent: JVD - *Routine Respiratory Exam Present: decreased breath sounds - *Routine Cardiovascular Exam Present: RRR, murmur, S4 - *Routine Abdominal Exam Present: soft - *Routine Extremities Exam Absent: calf tenderness - *Routine Skin Exam Present: intact - *Routine Neurological Exam Present: alert, oriented X3, CN II-XII intact - Routine Psychiatric Exam Present: normal affect Assessment and Plan (1) Acute kidney injury Current visit: Yes Status: Acute Category: Medical Code(s): N17.9 - Acute kidney failure, unspecified (2) Constipation Current visit: Yes Status: Acute Category: Medical Code(s): K59.00 - Constipation, unspecified (3) Gastritis Current visit: Yes Status: Acute Category: Medical Code(s): K29.70 - Gastritis, unspecified, without bleeding (4) Urinary retention Current visit: Yes Status: Acute Category: Medical Code(s): R33.9 - Retention of urine, unspecified (5) Vomiting Current visit: Yes Status: Acute Category: Medical Code(s): R11.10 - Vomiting, unspecified (6) Prostate enlargement Current visit: Yes Status: Acute Category: Medical Code(s): N40.0 - Benign prostatic hyperplasia without lower urinary tract symptoms
[2019-06-22 13:55] LABS: Anion Gap 9.8 mEq/L (5-15); Calcium 8.1 mg/dL (8.5-10.1)
--- OUTSIDE RECORDS SUMMARY | 2019-06-22 15:16 | External Medical Summary | Continuity of Care Document ---
:1955 Author Organization [facility] Address [address] [facility] [address] [place] [address] Phone Care Team Providers Name Role Phone Kevin Hu Primary Care Provider Bimal Attending Provider Kevin Hu Attending Provider Provider Primary Care Provider Unavailable Allergies, Adverse Reactions, Alerts Allergen Type Severity Reaction Last Verified Status Updated latex Allergy Yes Active Clopidogrel Allergy No Active Medications Medication Status Dose Units Route Sig Qty Days Start End Instruct ions Date Date Insulin Detemir Active 26 UNIT SUBCUTANE Twice a 15.6 30 November 3:30pm Duloxetine Hcl Active 30 MG Oral Daily May 07, 2019 9:04am Insulin Lispro Active 50 UNIT SUBCUTANE Twice a November 3:29pm Levothyroxine Active 50 MCG Oral Daily January 092018 1:43pm Omeprazole Active 40 MG Oral Daily March 16, 2019 9:29am Ranitidine Hcl Active 150 MG Oral Daily March 16, 2019 9:30am Aspirin Active 81 MG Oral Daily March 30, 2019 9:16am Atorvastatin Active 80 MG Oral At March bedtime , nightly 2018 1:58pm Lisinopril Active 40 MG Oral Daily March 24, 2019 2:05pm Carvedilol Active 25 MG Oral Twice a June 2:31pm Fenofibrate Active 160 MG Oral Daily June 18, 2019 2:36pm Isosorbide Active 30 MG Oral Daily June Mononi2018 2:38pm Bumetanide Active 1 MG Oral Twice a June 2:50pm Docusate Sodium Active 100 MG Oral Daily June needed 2:50pm Lorazepam Active 0.5 MG Oral Twice a June needed 2:50pm Ergocalciferol Active 1 TAB Oral Weekly June (Vitamin D2) 2018 2:01pm Oxycodone Active 1 TAB Oral Q6H June Hcl/Acetaminoph 2018 2:01pm Warfarin Sodium Active 5 MG Oral Daily June 21, 2019 2:03pm Sennosides Active 30 MG Oral Twice a June 6:08pm Amiodarone Hcl Active 200 MG Oral Daily June 22, 2019 7:14am Gabapentin Active 800 MG Oral Three June times a 2018 7:14am Tamsulosin Hcl Active 0.4 MG Oral At June bedtime , nightly 2018 7:14am Problems Active Problems Medical Problem Onset Date Status Acute kidney injury Active Elevated brain natriuretic peptide Activ e (BNP) level Uncontrolled hypertension Active Acute exacerbation of CHF Active (congestive heart failure) Chronic maxillary sinusitis Active Vasovagal syncope Active Diabetes Active Prostate enlargement Active Coronary artery disease Active Gastritis Active Gastroenteritis Active Hospital-acquired pneumonia Active Elevated troponin Active Urinary retention Active Recent non-ST elevation myocardial Activ e infarction Abdominal pain Active Acute on chronic renal failure Active Hypertension Active Constipation Active Vomiting Active CVA (cerebral vascular accident) Active Procedures Procedure Date Performed Status XR foot wt bearing LT 3V May 07, 2019 completed XR foot wt bearing RT 3V May 07, 2019 completed Gram Stain May 07, 2019 completed Wound Culture May 07, [address] abdomen pelvis wo con March 24, 2019 completed ECG initial [place] March 24, 2019 completed Relevant Diagnostic Tests and/or Laboratory Data Laboratory Results Test Date/Time Result Interpretation Reference Result Comment Performing Range Site Glucose April 285 (Fingerstick) 2018 9:18am White Blood March 6.6 4.8-10.8 [facility], [address] [place] [address] Count 2018 K/mm3 [place] [address] 2:19pm White Blood April 6.3 4.8-10.8 [facility], [facility] Count 2018 K/mm3 [place] [address] 10:42am Red Blood Count March 3.29 4.60-6.20 [facility], [address] [place] [address] E 2018 M/mm3 [place] [address] 2:19pm Red Blood Count April 3.62 4.60-6.20 [facility], [address] [place] [address] E 2018 M/mm3 [place] [address] 10:42am Hemoglobin March 10.1 14.1-18.0 [facility], [address] [place] [address] E 2018 g/dL [place] [address] 2:19pm Hemoglobin April 10.2 14.1-18.0 [facility], [address] [place] [address] E 2018 g/dL [place] [address] 10:42am Hematocrit March 30.9 % 42.0-52.0 [facility], [address] [place] [address] E 2018 [place] [address] 2:19pm Hematocrit April 33.5 % 42.0-52.0 [facility], [address] [place] [address] E 2018 [place] [address] 10:42am Mean March 93.9 fl 80-94 [facility], [address] [place] [address] E Corpuscular 2018 Mel[place] [address] Volume 2:19pm Mean April 92.7 fl 80-94 [facility], [address] [place] [address] E Corpuscular 2018 [place] [address] Volume 10:42am Mean March 30.6 pg 27.0-31.2 [facility], [address] [place] [address] E Corpuscular 2018 Melany [place] [address] Hemoglobin 2:19pm Mean April 28.3 pg 27.0-31.2 [facility], [address] [place] [address] E Corpuscular 2018 [place] [address] Hemoglobin 10:42am Mean March 32.6 31.8-35.4 [facility], [address] [place] [address] E Corpuscular 2018 g/dL [place] [address] Hemoglobin 2:19pm Concent Mean April 30.5 31.8-35.4 [facility], [address] [place] [address] 36 E Corpuscular 2018 g/dL [place] [address] Hemoglobin 10:42am Concent Red Cell March 16.3 % 11.5-17.5 [facility], [address] [place] [address] E Distribution 2018 [place] [address] Width 2:19pm Red Cell April 14.1 % 11.5-17.5 [facility], [address] [place] [address] E Distribution 2018 [place] [address] Width 10:42am Platelet Count March 304 142-424 [facility], [address] [place] [address] E 2018 K/mm3 [place] [address] 2:19pm Platelet Count April 426 142-424 [facility], [address] [place] [address] E 2018 K/mm3 [place] [address] 10:42am Mean Platelet March 8.1 fl 7.4-10.4 [facility], [address] [place] [address] E Volume 2018 [place] [address] 2:19pm Mean Platelet April 7.6 fl 7.4-10.4 [facility], [address] [place] [address] E Volume 2018 [place] [address] 10:42am Neutrophils (%) March 71.5 % 37.0-80.0 [facility], [address] [place] [address] E (Auto) 2018 [place] [address] 2:19pm Neutrophils (%) April 77.8 % 37.0-80.0 [facility], [address] [place] [address] E (Auto) 2018 [place] [address] 10:42am Lymphocytes (%) March 20.4 % 10-50 [facility], [address] [place] [address] E (Auto) 2018 [place] [address] 2:19pm Lymphocytes (%) April 12.5 % 10-50 [facility], [address] [place] [address] E (Auto) 2018 [place] [address] 10:42am Monocytes (%) March 6.4 % 1.7-9.3 [facility], [address] [place] [address] E (Auto) 2018 [place] [address] 2:19pm Monocytes (%) Yanna 6.8 % 1.7-9.3 [facility], [address] [place] [address] E (Auto) 2018 [place] [address] 10:42am Eosinophils (%) [place] 1.3 % 0.1-12.0 [facility], [address] [place] [address] E (Auto) 2018 [place] [address] 2:19pm Eosinophils (%) Yanna 2.3 % 0.1-12.0 [facility], [address] [place] [address] E (Auto) 2018 [place] [address] 10:42am Basophils (%) [place] 0.3 % 0.1-2.0 [facility], [address] [place] [address] E (Auto) 2018 [place] [address] 2:19pm Basophils (%) Yanna 0.6 % 0.1-2.0 [facility], [address] [place] [address] E (Auto) 2018 [place] [address] 10:42am Neutrophils # [place] 4.7 1.8-7.8 [facility], [address] [place] [address] E (Auto) 2018 K/mm3 [place] [address] 2:19pm Neutrophils # Yanna 4.9 1.8-7.8 [facility], [address] [place] [address] E (Auto) 2018 K/mm3 [place] [address] 10:42am Lymphocytes # [place] 1.4 0.7-4.5 [facility], [address] [place] [address] E (Auto) 2018 K/mm3 [place] [address] 2:19pm Lymphocytes # Yanna 0.8 0.7-4.5 [facility], [address] [place] [address] E (Auto) 2018 K/mm3 [place] [address] 10:42am Monocytes # [place] 0.4 0.1-1.0 [facility], [address] [place] [address] E (Auto) 2018 K/mm3 [place] [address] 2:19pm Monocytes # Yanna 0.4 0.1-1.0 [facility], [address] [place] [address] E (Auto) 2018 K/mm3 [place] [address] 10:42am Eosinophils # [place] 0.1 0.0-0.4 [facility], [address] [place] [address] 36 E (Auto) 2018 K/mm3 [place] [address] 2:19pm Eosinophils # Yanna 0.1 0.0-0.4 [facility], [address] [place] [address] 36 E (Auto) 2018 K/mm3 [place] [address] 10:42am Basophils # [place] 0.0 0-0.2 [facility], [address] [place] [address] 36 E (Auto) 2018 K/mm3 [place] [address] 2:19pm Basophils # Yanna 0.0 0-0.2 [facility], [address] [place] [address] 36 E (Auto) 2018 K/mm3 [place] [address] 10:42am Erythrocyte April 82 mm/hr 0-20 [facility], [address] [place] [address] E Sedimentation 2018 [place] [address] Rate 10:42am INR May 11.1 0.9-1.1 Results sent to: [facility] (Fingerstick) 2018 Russ Hu ([facility]) 3:12pm MD Pharmacist recommendation for Warfarin therapy is:PATIENT INR NOT ABLE TO READ WITH FINGERSTICK INR. SENT PATIENT TO LAB FOR VENIPUNCTURE. INR WAS 11.12. PATIENT HAS BEEN TAKING WARFARIN 5 MG DAILY SINCE D/C FROM ON 05/29. PATIENT COULD NOT MAKE INTO CLINIC YESTERDAY BASED ON [employer] BUSINESS DEVELOPMENT OFFICER FROM . PATIENT HAS ALSO BEEN TAKING LOVENOX 80 MG BID WELL. HAD PATIENT STOP LOVENOX AND WARFARIN AT THIS TIME. CALLED MD OFFICE ABOUT GIVING VITAMIN K 5 MG SUBQ X1 DOSE TODAY. WILL FOLLOW UP ON SATURDAY IN ACC.FOR DETAILED INFORMATION-PLEA SE REVIEW PROGRESS NOTE IN THE ASSESSMENTS AND ANTICOAGULATION CLINIC SECTION ANTICOAGULATION CLINIC IN PCI/CLINICAL REVIEW INDICATION INR RANGE THERAPY FOR DVT, PE, ATRIAL FIB; 2.0 - 3.0 PROPHYLAXIS FOR VTE THERAPY FOR MECHANICAL HEART 2.5 - 3.5 VALVE; PREVENTION OF SYSTEMIC EMBOLISM SECONDARY TO AMI INR May 3.9 0.9-1.1 Results sent to: [facility] (Fingerstick) 2018 Russ Hu ([facility]) 3:31pm Pharmacist recommendation for Warfarin therapy is:PATIENT INR 3.9 TODAY VIA FINGERSTICK. INR WAS 1.80 ON 06/05. SUSPECT INR WILL CONTINUE TO INCREASE WITH CURRENT DOSING. RECOMMENDED PATIENT HOLD DOSE X2 DAYS, THEN 2.5 MG ON MARE/SAT/SUN; 5 MG ON SAT. WILL FOLLOW UP ON SATURDAY.FOR DETAILED INFORMATION-CHELO BARTLETT REVIEW PROGRESS NOTE IN THE ASSESSMENTS AND ANTICOAGULATION CLINIC SECTION ANTICOAGULATION CLINIC IN PCI/CLINICAL REVIEW INDICATION INR RANGE THERAPY FOR DVT, PE, ATRIAL FIB; 2.0 - 3.0 PROPHYLAXIS FOR VTE THERAPY FOR MECHANICAL HEART 2.5 - 3.5 VALVE; PREVENTION OF SYSTEMIC EMBOLISM SECONDARY TO AMI Prothrombin May 103.1 9.4-11.8 [facility], [address] [place] [address] E Time 2018 [place] [address] 2:20pm RESULT Results called to: KRYSSHEDDIE on 06/02/19 at 1443By Shanitaignacio Gravesig Prothrombin May 29.2 9.4-11.8 [facility], [address] [place] [address] 36 E Time 2018 [place] [address] 2:18pm Prothromb Time 06.23 0.9-1.1 [facility], [address] [place] [address] E International 2018 [place] [address] Ratio 2:20pm RESULT Results called to: KRSYSHEDDIE on 06/02/19 at 1443By Shanita Bagley INDICATION INR RANGETherapy for DVT, PE, Atrial Fib, 2.0-3.0Prophylax is for VTE.Therapy for Mechanical Heart Valve, 2.5-3.5Preventio n of Sytemic Emolism secondary to AMI. Prothromb Time May 0.9-1.1 INDICATIO N [facility], [address] [place] [address] 36 E International 2018 [place] [address] Ratio 2:18pm INR RANGETherapy for DVT, PE, Atrial Fib, 2.0-3.0Prophylax is for VTE.Therapy for Mechanical Heart Valve, 2.5-3.5Preventio n of Sytemic Emolism secondary to AMI. Troponin I March 0.05 0.00-0.06 *ALERT* High [facility], [address] [place] [address] 36 E 2018 ng/[place] [address] 2:19pm can falsely depress Troponin results.Many dietary supplements promoted for hair,skin, and nail benefits contain biotin levels up to 650 times the recommended daily intake of biotin. In additon to dietary supplements, Biotin is occasionally prescribed for medical conditions. Sodium Level March 141 136-145 [facility], [address] [place] [address] 36 E 2018 mmol/[place] [address] 2:19pm Sodium Level April 135 136-145 [facility], [address] [place] [address] 36 E 2018 mmol/[place] [address] 10:42am Potassium Level March 4.3 3.5-5.1 [facility], [address] [place] [address] 36 E 2018 mmoL/[place] [address] 2:19pm Potassium Level April 4.4 3.5-5.1 [facility], [address] [place] [address] 36 E 2018 mmoL/[place] [address] 10:42am Chloride Level March 105 98-107 [facility], [address] [place] [address] 36 E 2018 mmol/[place] [address] 2:19pm Chloride Level April 99 98-107 [facility], [address] [place] [address] 36 E 2018 mmol/[place] [address] 10:42am Carbon Dioxide April 10 21.0-32.0 [facility], [address] [place] [address] 36 E Level 2018 mmol/[place] [address] 2:19pm Carbon Dioxide April 21.0-32.0 [facility], [address] [place] [address] E Level 2018 mmol/[place] [address] 10:42am Anion Gap March 10.3 -15 [facility], [address] [place] [address] 36 E 2018 mEq/[place] [address] 2:19pm Anion Gap April 8.4 -15 [facility], [address] [place] [address] 36 E 2018 mEq/[place] [address] 10:42am Blood Urea March 28 mg/dL 02-26 [facility], [address] [place] [address] 36 E Nitrogen 2018 [place] [address] 2:19pm Blood Urea April 25 mg/dL 02-26 [facility], [address] [place] [address] 36 E Nitrogen 2018 [place] [address] 10:42am Creatinine March 2.33 0.70-1.30 [facility], [address] [place] [address] 36 E 2018 mg/[place] [address] 2:19pm Creatinine April 2.09 0.70-1.30 [facility], [address] [place] [address] 36 E 2018 mg/[place] [address] 10:42am Estimated [place] 50 0-300 [facility], [address] [place] [address] E Creatinine 2018 mL/[place] [address] Clearance 2:19pm Estimated GFR March 34 >59 [facility], [address] [place] [address] 36 E ( 2018 ML/[place] [address] Moz[place]ican) 2:19pm Estimated GFR April 39 >59 [facility], [address] [place] [address] 36 E ( 2018 ML/[place] [address] [place]) 10:42am Estimat March 28 >59 [facility], [address] [place] [address] 36 E Glomerular 2018 ml/[place] [address] Filtration Rate 2:19pm Estimat April 32 >59 [facility], [address] [place] [address] E Glomerular 2018 ml/[place] [address] Filtration Rate 10:42am Glucose Level March 199 74-106 [facility], [address] [place] [address] 36 E 2018 mg/[place] [address] 2:19pm Glucose Level April 258 74-106 [facility], [address] [place] [address] 36 E 2018 mg/[place] [address] 10:42am Calcium Level March 8.8 8.5-10.1 [facility], [address] [place] [address] 36 E 2018 mg/[place] [address] 2:19pm Calcium Level April 8.8 8.5-10.1 [facility], [address] [place] [address] 36 E 2018 mg/dL [place] [address] 10:42am Total Bilirubin March 0.4 0.2-1.0 [facility], [address] [place] [address] 36 E 2018 mg/dL [place] [address] 2:19pm Total Bilirubin April 0.3 0.2-1.0 [facility], [address] [place] [address] 36 E 2018 mg/dL [place] [address] 10:42am Aspartate Amino March 39 U/L [facility], [address] [place] [address] 36 E Transf 2018 [place] [address] (AST/SGOT) 2:19pm Aspartate Amino April 22 U/L [facility], [address] [place] [address] 36 E Transf 2018 [place] [address]1669 (AST/SGOT) 10:42am Alanine March 27 U/L [facility], [address] [place] [address] E Aminotransferas 2018 [place] [address] e (ALT/SGPT) 2:19pm Alanine April 13 U/L [facility], [address] [place] [address] E Aminotransferas 2018 [place] [address] e (ALT/SGPT) 10:42am C-Reactive Yanna 0.4 0.0-0.9 [facility], [address] [place] [address] 36 E Protein 2018 mg/dL [place] [address] 10:42am Total Protein [place] 6.5 6.4-8.2 [facility], [address] [place] [address] 36 E 2018 gm/dL [place] [address] 2:19pm Total Protein April 6.6 6.4-8.2 [facility], [address] [place] [address] 36 E 2018 gm/dL [place] [address] 10:42am Albumin [place] 2.5 3.4-5.0 [facility], [address] [place] [address] 36 E 2018 gm/dL [place] [address] 2:19pm Albumin Yanna 2.5 3.4-5.0 [facility], [address] [place] [address] 36 E 2018 gm/[place] [address] 10:42am Globulin [place] 4.0 1.3-3.2 [facility], [address] [place] [address] 36 E 2018 gm/dl [place] [address] 2:19pm Globulin Yanna 4.1 1.3-3.2 [facility], [address] [place] [address] 36 E 2018 gm/dl [place] [address] 10:42am Albumin/Globuli [place] 0.6 1.1-1.8 [facility], [address] [place] [address] 36 E n Ratio 2018 [place] [address] 2:19pm Albumin/Globuli Yanna 0.6 1.1-1.8 [facility], [address] [place] [address] 36 E n Ratio 2018 [place] [address] 10:42am Alkaline [place] 86 U/L 46-116 [facility], [address] [place] [address] E Phosphatase 2018 [place] [address] 2:19pm Alkaline Yanna 73 U/L 46-116 [facility], [address] [place] [address] E Phosphatase 2018 [place] [address] 10:42am Lipase [place] 163 u/L 73-393 [facility], [address] [place] [address] 36 E 2018 [place] [address] 2:19pm Microbiology Results Procedure Source Result Collection Result Result Performin g Date/Time Date/Time Comment Site Gram Stain Toe,Right April [facility], [address] [place] [address] 36 E Great 2018 [place]ac [place] [address] 11:59pm 8:02pm Wound Toe,Right Staphylococcus April [facility], [address] [place] [address] E Culture Great aureus 2018 [place] [address] 11:59pm 10:10am Diagnostic Imaging Reports Report Dictated Date/Time Dictated By Status Radiology Report March 24, 2019 Lalo Kelly MD completed 3:08pm [address] [place] [address] [address] Scan Report Sig arielle Patient: Franck Lam MR#: [id number] : 1955 Acct:[id number] Age/Sex: 63 / M ADM Date: 9 Loc: ER Attending Dr: Ordering Physician: Go Jennings MD Date of Service: 03/24/19 Procedure(s): CT abdomen pelvis wo con Accession Number(s): [id number] cc: Lalo Kelly MD; Russ Hu MD~ PROCEDURE: CT ABDOMEN PELVIS WO CON CLINICAL HISTORY: abdo pain Generalized abdominal pain with nausea and vomiting COMPARISON: ABDPELWO CT abdomen pelvis wo con from 09/17/2018 TECHNIQUE: Axial images obtained with sagittal and coronal reformats. All CT scans at the facility use one or more d ose reduction, viz: automated exposure control, ma/kV adjustment per patient size (including targeted exams where dose is matched to indication, i.e. head), or iterative reconstruction technique. FINDINGS: There are moderate sized bilateral pl eural effusions with prominent subpulmonic component on the left with moderate volume loss of the left lower lobe. The liver, gallbladde r, spleen, adrenal glands, and pancreas have an unremarkable appearanc e. There is extensive vascular calcification. No intestinal obstruction or free air. No evidence of appendicitis or diverticuli tis. There are scattered diverticula within the descending and s igmoid colon. There is mild amount of retained colonic feces in the rectosigmoid region. No pelvic mass or abnormal fluid collectio n is evident. No acute bony anomaly. IMPRESSION: Moderate size bilateral pleural effusio ns with prominent subpulmonic component on the left with moderate col lapse of the left lower lobe. No acute abdominal or pelvic findings Dictated by: Lalo Kelly MD 03/24 16:07 Signed by: <Electronically signed by Lalo Kelly MD in [place]> 03/24/2019 16:07 Radiology Report May 07, 2019 Lalo Kelly MD completed 10:38am [facility] [address] [place] [address] [facility] [address] [place] [address] XRay R eport Sig arielle Patient: Franck Lam MR#: [id number] : 1955 Acct:[id number] Age/Sex: 63 / M ADM Date: 9 Loc: LAB Attending Dr: Mel Wallis DPM Ordering Physician: Mel Wallis DPM Date of Service: 05/07/19 Procedure(s): XR foot wt bearing LT 3V Accession Number(s): [id number] cc: Lalo Kelly MD; Russ Hu MD~ PROCEDURE: XR FOOT WT BEARING LT 3V CLINICAL INDICATION: diabetic foot Foot pain COMPARISON: No exams were available fo r comparison FINDINGS: No fracture or dislocation. No lytic or blastic change. There is normal mineralization. The joint spaces are well-preserved. No significant degenerative/arthritic changes. No eros halle changes evident. Other findings:There is diffuse vascula r calcification. IMPRESSION: No acute findings. Dictated by: Lalo Kelly MD 05/07/2019 13:10 Electronically signed by Lalo Kelly in [place] 05/07/2019 13:10 Radiology Report May 07, 2019 Lalo Kelly MD completed 10:38am [facility] [address] [place] [address] XRay [place] Sig arielle Patient: Franck Lam MR#: [id number] : 1955 Acct:[id number] Age/Sex: 63 / M ADM Date: 9 Loc: LAB Attending Dr: Mel Wallis DPM Ordering Physician: Mel Wallis DPM Date of Service: 05/07/19 Procedure(s): XR foot wt bearing RT 3V Accession Number(s): [id number] cc: Lalo Kelly MD; Russ Hu MD~ PROCEDURE: XR FOOT WT BEARING RT 3V CLINICAL INDICATION: diabetic foot COMPARISON: No exams were available fo r comparison FINDINGS: No fracture or dislocation. No lytic or blastic change. There is normal mineralization. The joint spaces are well-preserved. No significant degenerative/arthritic changes. No eros halle changes evident. Other findings:Bandage artifact overlie s the metatarsophalangeal junction dorsally. There is diffuse va scular calcification. No obvious bony destructive process. Ther e is an os cuboid within accessory coarse calcification lateral to the cuboid and may be related to heterotopic ossification. IMPRESSION: Vascular calcification. Unusual well-circumscribed soft tissue calcification lateral to the cuboid Dictated by: Lalo Kelly MD 05/07/2019 13:13 Electronically signed by Lalo Kelly in [place] 05/07/2019 13:13 Advance Directives Advance Directive Response Recorded Date/Time Does the patient have an No May 08, 2019 11:43am advanced directive on file? Living Will No May 08, 2019 11:43am Does the patient have an No May 07, 2019 10:40am advanced directive on file? Living Will No May 07, 2019 10:40am Chief Complaint and Reason for Visit Chief Complaint nausea Wound Care xray labs intermediate follow up z79.0; LAB WORK LAB WORK ACC Gastritis Reason for Visit Acute kidney injury Constipation Gastritis Prostate enlargement Urinary retention Vomiting Encounters Encounter Location(s) Arrival/Admit Date Discharge/Depart Provi marisol(s) Date Departed [facility] Physician March 24, 2019 March 24, 2019 [facility] Emergency Group-Emergency 1:50pm 7:03pm Room Departed [facility] Physician May 07, May 07, 2019 Jhoan Wallis , Physician/Provi Group-Podiatry 2018 8:27am 9:55am DPM marisol Office Clinic [facility] Visit Registered [facility] Physician May 07, Mel davis , Clinical Group-Laboratory 2018 10:04am DPM Departed [facility] Physician May 08, May 08, 2019 Javier Brown Physician/Provi Group-Primary 2018 10:11am 12:09pm MD Mayte marisol Office Care-Mayte Visit Departed [facility] Physician June 02, 2019 June 02, 2019 Maday Brown Clinical Group-Infusion 1:30pm 3:26pm MD Mayte Therapy ChemoTherapy Registered [facility] Physician June 05, 2019 Russ Brown Clinical Group-Laboratory 2:12pm MD Mayte Departed [facility] Physician June 09, 2019 June 09, 2019 Maday Brown Clinical Group-Anticoagula 3:26pm 3:35pm [facility] Registered [facility] Physician June 21, Russ Brown Inpatient Group-Primary 2018 5:12pm MD Mayte Care-Mayte Registered [facility] Physician June 22, Russ Brown Inpatient Group- 2019 3:01pm MD Mayte Recent Diagnosis Onset Date Acute kidney injury Constipation Gastritis Prostate enlargement Urinary retention Vomiting Assessments Diagnosis Onset Date Resolution Status Acute kidney injury acute Constipation acute Gastritis acute Prostate enlargement acute Urinary retention acute Vomiting acute Functional Status Observation Response Date Recorded Ambulation Ability Independent June 02, 2019 3 :24pm Standby Assistance June 02, 2019 3 :24pm Functional status other May 08, 2019 11:43am Oral Care Ability Independent May 08, 2019 11:43am Bathing Ability Assistance x1 May 08, 2019 11:43am Eating (Feeding) Ability Independent May 08, 2019 11:43am Toileting Ability Assistance X1 May 08, 2019 11:43am Ambulation Ability Total Dependance May 08, 2019 11:43am Functional status ambulatory May 07, 2019 10:40am Oral Care Ability Independent May 07, 2019 10:40am Bathing Ability Assistance x1 May 07, 2019 10:40am Eating (Feeding) Ability Independent May 07, 2019 10:40am Toileting Ability Assistance X2 May 07, 2019 10:40am Ambulation Ability Assistance x2 May 07, 2019 10:40am Goals Acute Goals Nursing Diagnosis: Knowledge Deficit D isease/Condition Goal(s): Education of di sease process Instruction(s): Follow provider p claudia/instructions (See attached discharge education) Follow/up with primary care provider as instructed in discharge packet Ambulatory Goals Patient verbalizes understanding of dise ase process/healthy behaviors.Patient to follow plan of care.Education provided. Immunizations Immunization Event Date Not Given Dose Issue Clerk Lot Vac cine Reason Number Number Informatio n Statement (VIS) Deta il Pneumococcal August Polysacc. 2010 Vaccine, 23 valent Mental Status No Mental Status Information Available Medical Equipment No Medical Equipment Information available Insurance Providers Guarantor Franck Lam Address [address] [place] [address] Contact Info. Home Phone: Payer Policy Id Coverage Id Subscriber's Subscriber Effective Expi ration Name Id Date Date Medicaid [id number] Franck Lam [id number] Self Pay Self N/A [employer] [id number] Gervaisalvarez Lam [id number] Health Plan [employer] Plan of Treatment will follow in 2 weeks - Infected Wound: right foot, toe ulcers: I discussed with the patient the importance of proper hygiene and maintaining a clean healthy wound bed to avoid the infection spreading. The wound was cleansed with rug cleaner hand. Utilizing a 15 blade, the wounds x 5were sharply excisionally debrided through skin. Dry peeling skin sharply debrided. None of the wounds probed thru deep fascia and into the bone. There was serosanginous drainage noted to right hallux blister. Wound culture obtained. Sveta-wound cellulitis noted. Non-palpable popliteal lymph nodes. Post-debridement: see wound assessment. 1. Dressing applied: betadine dry sterile dressing 2. Wound care instructions given: change dressing daily 3. NWB in short fracture boot with DME assistance 4. Order infection panel: CBC, CMP, ESR, CRP, Ha1c, wound culture. 5. e-Rx given for antibiotics: Sivextro 200mg x 6 days 6. X-rays 3 views feet to rule out OM 7. Call the office immediately if pain increases or signs of infection worsen 8. Follow up in 1 week TOENAIL TRIM: 1. Nails were debrided xs 10 utilizing manual debridement with a nail nipper. 2. A Dremel was then used to take down the thickness of all toenails. 3. Patient tolerated the procedure well. 4. Recommend the use of thom board to file nails down and keep thinner. 5. Follow up in 3 months or as needed. 6. Patient should call me sooner if any questions or concerns arise. Skin Changes: Discussed with the patient the possibility of vascular disease. I explained the difference between macro and micro vascular disease. I explained that macrovascular disease usually involves stenosis or blockage of arteries and requires stenting to open up the vessel to improve circulation. I explained that microvascular disease is much harder to treat because you cannot stent this and it often involves the feet. We discussed how problems with arterial circulation can cause coldness and discoloration to the toes, pain to the digits, delayed healing of wounds, arterial wounds, and gangrene. We discussed how problems with venous circulation can cause fluid retention, swelling, pain and delayed healing of venous wounds. Check vascular studies: JAELYN/toe pressures to evaluate for new skin changes DM EDUCATION: A comprehensive diabetic foot examination was performed today. We discussed the systemic risks of diabetes and the importance of proper glucose control. We discussed the dangers of neuropathy or excessive pain. Patient was given a risk stratification of 1 and is recommend to follow up every 3 months. We discussed areas of high pressure on the patients foot as well as the risks and offloading solutions. We reviewed the proper foot care instructions such as: checking feet on a daily basis, keeping good hygiene, drying well between all toes, using lotion on dry skin, and wearing some form of foot protection at all times. We also discussed what to look for in areas of inflammation, ``hot spots, and ulcer formation. We did review patients current medications and discussed the importance of taking all medications as prescribed. We also discussed use of appropriate therapeutic footwear, inserts, and orthotics. Diabetic shoes are necessary in order to prevent rubbing and irritation on the deformities. This in return will help prevent ulceration formation, amputation, and infection. Patient qualifies for Diabetic shoes with heat molded inserts due to the following conditions: diabetes, HAV, hammertoe deformity, ulcers, pre-ulcerative lesions and peripheral neuropathy. Will need DM shoes once wounds are healed. Future Tests Future scheduled test information is unavailable Pending Tests Pending diagnostic test information is unavailable Future Visits Future appointment information is unavailable Referrals to Other Providers Reason for Referral Start Provider Provider Contact Provider Address Referral Date Information Admission to [facility] June [address] Future Procedures Future procedure information is unavailable Future Medications Future medication information is unavailable Patient Instructions DI for Diarrhea and Traveler's Diarrhea -- Adult DI for Nausea -- Adult Hammer Toe Type 2 Diabetes Cellulitis Boil Hammer Toe Correction Methicillin-Resistant Staph Infection Balanced Diet DI for Diabetic Neuropathy DI for Incision and Drainage of a Skin A bscess Stroke (Alternative Therapy) 'Diet Plate' May Help People With Diabet es Lose Weight DI for Dehydration -- Adult Chronic Renal Failure DI for Gastritis DI for Constipation DI for Vomiting -- Adult DI for Acute Kidney Injury Coumadin Vitamin K/ Diet Social History Assigned Sex Male Vital Signs Vital Reading Result Reference Range Collection Date/ Time Height 182.88 cm March 24 1:51pm Weight 109.31 kg March 24 9 1:51pm Body Temperature 98.6 [degF] 97.6-99.6 March 24 7:02pm Heart Rate 78 /min 60-90 March 24 9 7:02pm Respiratory rate 18 /min 12-24 March 24 7:02pm Oxygen saturation by 96 % 95-100 March Pulse oximetry 4:58pm BP Systolic 154 mm[Hg] 110-140 March 24 9 7:02pm BP Diastolic 74 mm[Hg] 60-90 March 24 9 7:02pm BMI (Body Mass Index) 32.6 kg/m2 March 1:51pm Height 187.96 cm May 07, 2019 9:00am Weight 110.67 kg May 07, 2019 9:00am Heart Rate 68 /min 60-May 07, 2019 9:00am Respiratory rate 18 /min -May 07, 2019 9:00am Oxygen saturation by 93 % 95-100 April 132018 Pulse oximetry 9:00am BP Systolic 135 mm[Hg] 110-140 May 07, 2019 9:00am BP Diastolic 66 mm[Hg] 60-90 May 07, 2019 9:00am BMI (Body Mass Index) 31.3 kg/m2 May 07, 2019 9:00am Height 187.96 cm May 08, 2019 10:53am Weight 110.67 kg May 08, 2019 10:53am Body Temperature 97.6 [degF] 97.6-99.6 May 08, 2019 10:53am Heart Rate 78 /min -May 08, 2019 10:53am Respiratory rate 16 /min 08-04May 08, 2019 10:53am Oxygen saturation by 98 % 95-100 April 132018 Pulse oximetry 10:53am BP Systolic 134 mm[Hg] 110-140 May 08, 2019 10:53am BP Diastolic 67 mm[Hg] 60-90 May 08, 2019 10:53am BMI (Body Mass Index) 31.3 kg/m2 May 08, 2019 10:53am Height 183 cm June 22, 019 1:50pm Weight 90.35 kg June 22 019 1:50pm Body Temperature 97.6 [degF] 97.6-99.6 June 22, 2019 8:00am Heart Rate 57 /min 60-June 22, 2 019 8:00am Respiratory rate 17 /min -June 22, 2019 8:00am Oxygen saturation by 100 % 95-100 June 222018 Pulse oximetry 8:00am BP Systolic 122 mm[Hg] 110-140 June 22, 2 019 8:00am BP Diastolic 32 mm[Hg] 60-90 June 22, 2 019 8:00am BMI (Body Mass Index) 26.9 kg/m2 June 122018 1:50pm Hospital Discharge Instructions Additional Instructions Zofran as needed for nausea. See Dr. Hu in the office this week. Additional instructions for ABDOMINAL PAIN: See your physician as soon as possible for further evaluation. Return immediately if worsening abdominal pain, vomiting, shortness of breath, fever, vomiting of blood or abdominal distention.
[2019-06-22 20:13] LABS: Calcium 8.1 mg/dL (8.5-10.1)
[2019-06-23 06:23] LABS: INR 1.62 (0.9-1.1); Prothrombin Time 16.5 seconds (9.4-11.8)
[2019-06-23 08:45] LABS: Basophils % 0.7 % (0.1-2.0); Eosinophils # 0.1 K/mm3 (0.0-0.4); Hematocrit 28.5 % (42.0-52.0); Lymphocytes # 1.8 K/mm3 (0.7-4.5); Lymphocytes % 36.3 % (10-50); Mean Corpuscular HGB Conc 31.5 g/dL (31.8-35.4); Mean Platelet Volume 8.5 fl (7.4-10.4); Monocytes # 0.3 K/mm3 (0.1-1.0); Monocytes % 6.3 % (1.7-9.3); Neutrophils # 2.7 K/mm3 (1.8-7.8); Neutrophils % 54.7 % (37.0-80.0); Platelet Count 262 K/mm3 (142-424); Red Cell Distribution Width 14.2 % (11.5-17.5); White Blood Count 4.9 K/mm3 (4.8-10.8)
[2019-06-23 08:56] LABS: Anion Gap 6.9 mEq/L (5-15)
--- NOTE | 2019-06-23 09:01 | Discharge Summary ---
General - General Admission date:: 06/21/19 Discharge date: 06/23/19 HPI HPI: 63-year-old male patient sitting up in chair, denies any needs or concerns. Requesting to be discharged, explained he will be discharged after urology sees him today he is in agreement with this. 63 yr old male presented to ed with c/o having nausea/vomiting and overall not feeling well. states that the patient hasn't been eating well and has had decreased appetite for 2 days. 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 Hospital Course Hospital Course: 63 yr old male presented to ed with c/o having nausea/vomiting and overall not feeling well. states that the patient hasn't been eating well and has had decreased appetite for 2 days. 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 Upon admission patient's BUN was 72 creatinine was 4.25, after fluids today BUN 43 creatinine 2.65. He is tolerating regular diet and is feeding self without difficulty. He is more alert and oriented and denies any problems at the present explained he will be discharged today he is agreeable to that. Patient was ordered to attend anticoagulation clinic, he did refuse this and never went, Will discharge home on Eli. He had a Erazo catheter removed yesterday and is been voiding W/O difficulty, reports nocturia X 2 last night and believes he emptied well. Home health care called cyber security analyst and said they would not be resuming home health care on him due to his deplorable living conditions. Cop Breaker will be calling Adult Protective Services today and inform them of concerns of home health care and of [facility]. Abd/Pelvis 06/21/2019: IMPRESSION: No acute findings in the abdomen or pelvis No bowel dilatation or obstruction Would note moderately distended food filled stomach. 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 Sigmoid diverticulosis but no diverticulitis. Moderate to generous stool at at rectum and rectosigmoid noted Also note moderately distended urinary bladder Slightly enlarged prostate . Extensive vascular arterial calcification most extensive involving branching vessels Per Dr. Hoyos, Urology has seen and rec: Impression no evidence of urinary retention likely. He will follow-up for an o ffice visit in 4 to 6 weeks. We will do bladder scan at that time and repeat a creatinine if not obtained previously. Objective Vital signs: Temp Pulse Resp BP Pulse Ox 97.9 F 49 L 17 107/48 L 96 06/23/19 07:49 06/23/19 07:49 06/23/19 07:49 06/23/19 07:49 06/23/19 07:49 no acute distress - *Routine HEENT Exam Head: Present: normocephalic, atraumatic Eye: Present: EOMI, PERRL, normal accommodation ENT: Present: mucous membranes moist, mucous membranes dry - *Routine Neck Exam Present: full ROM, trachea midline. Absent: JVD, tracheal deviation - *Routine Respiratory Exam Present: decreased breath sounds, CTA bilaterally - *Routine Cardiovascular Exam Present: murmur - *Routine Abdominal Exam Present: soft, normoactive bowel sounds. Absent: tenderness, firm - *Routine Extremities Exam Present: full ROM, pulses intact. Absent: calf tenderness, tenderness - Routine Back/Spine/Pelvis Exam Back/Spine: Present: full ROM. Absent: CVA tenderness Results Labs on day of discharge: Labs from last 24 hours 06/23/19 06/23/19 06/23/19 05:50 05:50 05:50 WBC 4.9 RBC 3.10 L Hgb 9.0 L Hct 28.5 L MCV 92.0 MCH 28.9 MCHC 31.5 L RDW 14.2 Plt Count 262 MPV 8.5 Neut % (Auto) 54.7 Lymph % (Auto) 36.3 Saline % (Auto) 6.3 Eos % (Auto) 2.0 Baso % (Auto) 0.7 Neut # (Auto) 2.7 Lymph # (Auto) 1.8 Saline # (Auto) 0.3 Eos # (Auto) 0.1 Baso # (Auto) 0.0 PT 16.5 H INR 1.62 H Sodium 135 L Potassium 4.9 Chloride 106 Carbon Dioxide 27 Anion Gap 6.9 BUN 43 H Creatinine 2.65 H Estimated Creat Clear 37 Estimated GFR 25 L Est GFR ( Amer) 30 L Glucose 127 H D POC Glucose Calcium 8.0 L 06/23/19 06/22/19 06/22/19 05:49 20:34 19:59 WBC RBC Hgb Hct MCV MCH MCHC RDW Plt Count MPV Neut % (Auto) Lymph % (Auto) Saline % (Auto) Eos % (Auto) Baso % (Auto) Neut # (Auto) Lymph # (Auto) Saline # (Auto) Eos # (Auto) Baso # (Auto) PT INR Sodium 131 L Potassium 5.0 Chloride 102 Carbon Dioxide 26 Anion Gap 8.0 BUN 50 H Creatinine 2.98 H Estimated Creat Clear 32 Estimated GFR 21 L Est GFR ( Amer) 26 L Glucose 205 H POC Glucose 129 H 205 H Calcium 8.1 L 06/22/19 06/22/19 06/22/19 16:58 13:37 11:25 WBC RBC Hgb Hct MCV MCH MCHC RDW Plt Count MPV Neut % (Auto) Lymph % (Auto) Saline % (Auto) Eos % (Auto) Baso % (Auto) Neut # (Auto) Lymph # (Auto) Saline # (Auto) Eos # (Auto) Baso # (Auto) PT INR Sodium 133 L Potassium 4.8 Chloride 102 Carbon Dioxide 26 Anion Gap 9.8 BUN 54 H Creatinine 3.20 H Estimated Creat Clear 30 Estimated GFR 20 L Est GFR ( Amer) 24 L Glucose 182 H D POC Glucose 174 H 221 H Calcium 8.1 L - Additional Comments Rounded with Dr. Hu, all orders per Dr. Hu 1. Urology to see 2. Will discharge home DS: Diagnosis - Discharge Diagnosis (1) Acute kidney injury Status: Acute (2) Constipation Status: Acute (3) Gastritis Status: Acute (4) Urinary retention Status: Acute (5) Vomiting Status: Acute (6) Prostate enlargement Status: Acute Discharge Plan - Patient Discharge Instructions ACTIVITY: Continue current activity DIET: continue same diet Patient Instructions: 'Diet Plate' May Help People With Diabetes Lose Weight, DI for Dehydration -- Adult, Chronic Renal Failure, DI for Gastritis, DI for Constipation, DI for Vomiting -- Adult, DI for Acute Kidney Injury, Coumadin Vitamin K/ Diet - Follow up Plan Follow up with: Fatuma Hernandez APRN [Nurse Practitioner] - 2 weeks Josh Toussaint MD [Staff Physician] - 1 month Disposition: Home, Self-Custodial Medications: Home Medications Medication Instructions Recorded Confirmed Type insulin detemir (U-100) 100 26 unit SQ BID 30 Days #15.6 ml 12/09/18 06/21/19 History unit/mL (3 mL) subcutaneous pen insulin lispro (U-100) 100 unit/mL 50 unit SQ BID ml 12/09/18 06/21/19 History subcutaneous pen levothyroxine 50 mcg tablet 50 mcg PO DAILY #90 tab 01/09/19 06/21/19 Rx omeprazole 40 mg capsule,delayed 40 mg PO DAILY #90 cap 03/16/19 06/21/19 Rx release ranitidine 150 mg tablet 150 mg PO DAILY #90 tab 03/16/19 06/21/19 Rx Atorvastatin Calcium [Atorvastatin 80 mg PO HS 03/24/19 06/21/19 History 80mg Tab] Lisinopril [Lisinopril 40mg Tablet] 40 mg PO DAILY 03/24/19 06/21/19 History aspirin 81 mg chewable tablet 81 mg PO DAILY #90 tab 03/30/19 06/21/19 Rx duloxetine 30 mg capsule,delayed 30 mg PO DAILY #30 cap 05/07/19 06/21/19 History release Bumetanide 1 mg PO BID 06/18/19 06/21/19 History Carvedilol [Carvedilol 25mg Tab] 25 mg PO BID 06/18/19 06/21/19 History Docusate Sodium 100 mg PO DAILYP PRN 06/18/19 06/21/19 History Fenofibrate 160 mg PO DAILY 06/18/19 06/21/19 History Isosorbide Mononitrate [Imdur 30mg 30 mg PO DAILY 06/18/19 06/21/19 History ER tablet] LORazepam [Ativan 0.5mg 0.5 mg PO BIDP PRN 06/18/19 06/21/19 History tablet] Ergocalciferol (Vitamin D2) 1 tab PO WEEKLY 06/21/19 06/22/19 History [Drisdol 50,000 units (1.25mg) capsule] Oxycodone HCl/Acetaminophen 1 tab PO Q6H 06/21/19 06/22/19 History [Oxycodone W/Apap 325mg Tablet] Sennosides [Chocolated Laxative] 30 mg PO BID PRN 06/21/19 06/21/19 History Warfarin Sodium [Coumadin 5mg 5 mg PO DAILY 06/21/19 06/21/19 History tablet] Amiodarone HCl 200 mg PO DAILY 06/22/19 06/22/19 History Gabapentin 800 mg PO TID 06/22/19 06/22/19 History Tamsulosin HCl 0.4 mg PO HS 06/22/19 06/22/19 History Apixaban [Eliquis 5mg Tablet] 5 mg PO BID 30 Days #60 tab 06/23/19 Rx Prescriptions/Medication Reconciliation: New Apixaban [Eliquis 5mg Tablet] 5 mg PO BID 30 Days #60 tab Continued insulin detemir (U-100) 100 unit/mL (3 mL) subcutaneous pen 26 unit SQ BID 30 Days #15.6 ml omeprazole 40 mg capsule,delayed release 40 mg PO DAILY #90 cap ranitidine 150 mg tablet 150 mg PO DAILY #90 tab aspirin 81 mg chewable tablet 81 mg PO DAILY #90 tab insulin lispro (U-100) 100 unit/mL subcutaneous pen 50 unit SQ BID ml levothyroxine 50 mcg tablet 50 mcg PO DAILY #90 tab duloxetine 30 mg capsule,delayed release 30 mg PO DAILY #30 cap Atorvastatin Calcium [Atorvastatin 80mg Tab] 80 mg PO HS Isosorbide Mononitrate [Imdur 30mg ER tablet] 30 mg PO DAILY Docusate Sodium 100 mg PO DAILYP PRN PRN Reason: Constipation Bumetanide 1 mg PO BID Ergocalciferol (Vitamin D2) [Drisdol 50,000 units (1.25mg) capsule] 1 tab PO WEEKLY Sennosides [Chocolated Laxative] 30 mg PO BID PRN PRN Reason: Constipation Amiodarone HCl 200 mg PO DAILY Gabapentin 800 mg PO TID Tamsulosin HCl 0.4 mg PO HS Lisinopril [Lisinopril 40mg Tablet] 40 mg PO DAILY Carvedilol [Carvedilol 25mg Tab] 25 mg PO BID Fenofibrate 160 mg PO DAILY LORazepam [Ativan 0.5mg tablet] 0.5 mg PO BIDP PRN PRN Reason: Anxiety Oxycodone HCl/Acetaminophen [Oxycodone W/Apap 325mg Tablet] 1 tab PO Q6H Discontinued Warfarin Sodium [Coumadin 5mg tablet] 5 mg PO DAILY - Problem Reconciliation Problems Reviewed?: Yes
--- NOTE | 2019-06-23 11:31 | Consult Report ---
*Admission Date: 06/21/19 *Reason for consult:: Possible urinary retention *History of present illness: She was admitted 2 days ago with several days of nausea and emesis and poor oral intake. He was noted to have azotemia with creatinine of 3. He had a CT scan which showed no hydronephrosis. His bladder was mildly distended. He had a Erazo catheter removed yesterday and is been voiding well. He had nocturia x2 last evening and feels he empties well. He has never had a urinary infection to his knowledge. His creatinine is improving and today is down to 2.6. Physical exam he is alert. He has some speech impediment. No CVA tenderness. Patient is sitting up in chair. Will defer rectal exam at this visit. Impression no evidence of urinary retention likely. He will follow-up for an office visit in 4 to 6 weeks. We will do bladder scan at that time and repeat a creatinine if not obtained previously. Review of Systems - *Neurologic Reports abnormal walking, Reports weakness, Reports other (old stroke changes, particularly to speech), Denies abnormal speech [facility] History Medical History: Reports:: Anxiety, Cancer, Coronary Artery Disease, Depression, Diabetes Mellitus Type 2, Gastroesophageal Reflux Disease(GERD), Hypertension, MRSA, Myocardial Infarction, Renal Disease, Transient Ischemic Attacks (TIA) *Have you ever received a pneumonia vaccine?: Yes *Have you received a flu vaccine this season?: No (doesn't think so) Other Medical History: Reports: Arthritis, Cataracts, Thyroid Disease Other Surgeries: Yes: CABG, Cardiac Surgery, Colonoscopy, Coronary Stent, Skin Cancer Excision, Other Amputation: No Fractures: No - *Social History Smoking Status: Former smoker Smoking End Date: 1998 Alcohol Intake: never Alcohol Intake Frequency:: other Substance Use Type: denies use *Occupational Status:: disabled Housing: house Household Members: family, children *Travel in the last 8 weeks: None - Psychiatric History Pschychiatric History:: Reports:: Anxiety, Depression Family Hx:: Coronary Artery Disease, Hypertension Meds Home Medications Medication Instructions Recorded Confirmed Type insulin detemir (U-100) 100 26 unit SQ BID 30 Days #15.6 ml 12/09/18 06/21/19 History unit/mL (3 mL) subcutaneous pen insulin lispro (U-100) 100 unit/mL 50 unit SQ BID ml 12/09/18 06/21/19 History subcutaneous pen levothyroxine 50 mcg tablet 50 mcg PO DAILY #90 tab 01/09/19 06/21/19 Rx omeprazole 40 mg capsule,delayed 40 mg PO DAILY #90 cap 03/16/19 06/21/19 Rx release ranitidine 150 mg tablet 150 mg PO DAILY #90 tab 03/16/19 06/21/19 Rx Atorvastatin Calcium [Atorvastatin 80 mg PO HS 03/24/19 06/21/19 History 80mg Tab] Lisinopril [Lisinopril 40mg Tablet] 40 mg PO DAILY 03/24/19 06/21/19 History aspirin 81 mg chewable tablet 81 mg PO DAILY #90 tab 03/30/19 06/21/19 Rx duloxetine 30 mg capsule,delayed 30 mg PO DAILY #30 cap 05/07/19 06/21/19 Hist ory release Bumetanide 1 mg PO BID 06/18/19 06/21/19 History Carvedilol [Carvedilol 25mg Tab] 25 mg PO BID 06/18/19 06/21/19 History Docusate Sodium 100 mg PO DAILYP PRN 06/18/19 06/21/19 History Fenofibrate 160 mg PO DAILY 06/18/19 06/21/19 History Isosorbide Mononitrate [Imdur 30mg 30 mg PO DAILY 06/18/19 06/21/19 History ER tablet] LORazepam [Ativan 0.5mg 0.5 mg PO BIDP PRN 06/18/19 06/21/19 History tablet] Ergocalciferol (Vitamin D2) 1 tab PO WEEKLY 06/21/19 06/22/19 History [Drisdol 50,000 units (1.25mg) capsule] Oxycodone HCl/Acetaminophen 1 tab PO Q6H 06/21/19 06/22/19 History [Oxycodone W/Apap 325mg Tablet] Sennosides [Chocolated Laxative] 30 mg PO BID PRN 06/21/19 06/21/19 History Warfarin Sodium [Coumadin 5mg 5 mg PO DAILY 06/21/19 06/21/19 History tablet] Amiodarone HCl 200 mg PO DAILY 06/22/19 06/22/19 History Gabapentin 800 mg PO TID 06/22/19 06/22/19 History Tamsulosin HCl 0.4 mg PO HS 06/22/19 06/22/19 History Allergies Allergy/AdvReac Type Severity Reaction Status Date / Time latex Allergy Verified 06/21/19 11:13 Clopidogrel Allergy Uncoded 05/08/19 11:06 Exam Vital signs and Labs for Last 24 Hours: Temp Pulse Resp BP Pulse Ox 97.9 F 49 L 17 107/48 L 96 06/23/19 07:49 06/23/19 07:49 06/23/19 07:49 06/23/19 07:49 06/23/19 07:49 Laboratory Results - last 24 hr 06/22/19 11:25: POC Glucose 221 H 06/22/19 13:37: Sodium 133 L, Potassium 4.8, Chloride 102, Carbon Dioxide 26, Anion Gap 9.8, BUN 54 H, Creatinine 3.20 H, Estimated Creat Clear 30, Estimated GFR 20 L, Est GFR ( Amer) 24 L, Glucose 182 H D, Calcium 8.1 L 06/22/19 16:58: POC Glucose 174 H 06/22/19 19:59: Sodium 131 L, Potassium 5.0, Chloride 102, Carbon Dioxide 26, Anion Gap 8.0, BUN 50 H, Creatinine 2.98 H, Estimated Creat Clear 32, Estimated GFR 21 L, Est GFR ( Amer) 26 L, Glucose 205 H, Calcium 8.1 L 06/22/19 20:34: POC Glucose 205 H 06/23/19 05:49: POC Glucose 129 H 06/23/19 05:50: PT 16.5 H, INR 1.62 H 06/23/19 05:50: WBC 4.9, RBC 3.10 L, Hgb 9.0 L, Hct 28.5 L, MCV 92.0, MCH 28.9, MCHC 31.5 L, RDW 14.2, Plt Count 262, MPV 8.5, Neut % (Auto) 54.7, Lymph % (Auto) 36.3, [place] % (Auto) 6.3, Eos % (Auto) 2.0, Baso % (Auto) 0.7, Neut # (Auto) 2.7, Lymph # (Auto) 1.8, [place] # (Auto) 0.3, Eos # (Auto) 0.1, Baso # (Auto) 0.0 06/23/19 05:50: Sodium 135 L, Potassium 4.9, Chloride 106, Carbon Dioxide 27, Anion Gap 6.9, BUN 43 H, Creatinine 2.65 H, Estimated Creat Clear 37, Estimated GFR 25 L, Est GFR ( Amer) 30 L, Glucose 127 H D, Calcium 8.0 L I & O for Last 24 hours: Intake & Output 06/20/19 06/21/19 06/22/19 06/23/19 23:59 23:59 23:59 23:59 Intake Total 2360 / 2360 3651 / 3651 1765 / 1765 Output Total 1000 / 1800 3800 / 3800 900 / 900 Balance 1360 / 560 -149 / -149 865 / 865 Weight 88.167 kg 90.356 kg 91.427 kg Results - Labs 06/23/19 05:50 06/23/19 05:50 Laboratory Results - last 24 hr 06/22/19 11:25: POC Glucose 221 H 06/22/19 13:37: Sodium 133 L, Potassium 4.8, Chloride 102, Carbon Dioxide 26, Anion Gap 9.8, BUN 54 H, Creatinine 3.20 H, Estimated Creat Clear 30, Estimated GFR 20 L, Est GFR ( Amer) 24 L, Glucose 182 H D, Calcium 8.1 L 06/22/19 16:58: POC Glucose 174 H 06/22/19 19:59: Sodium 131 L, Potassium 5.0, Chloride 102, Carbon Dioxide 26, Anion Gap 8.0, BUN 50 H, Creatinine 2.98 H, Estimated Creat Clear 32, Estimated GFR 21 L, Est GFR ( Amer) 26 L, Glucose 205 H, Calcium 8.1 L 06/22/19 20:34: POC Glucose 205 H 06/23/19 05:49: POC Glucose 129 H 06/23/19 05:50: PT 16.5 H, INR 1.62 H 06/23/19 05:50: WBC 4.9, RBC 3.10 L, Hgb 9.0 L, Hct 28.5 L, MCV 92.0, MCH 28.9, MCHC 31.5 L, RDW 14.2, Plt Count 262, MPV 8.5, Neut % (Auto) 54.7, Lymph % (Auto) 36.3, [place] % (Auto) 6.3, Eos % (Auto) 2.0, Baso % (Auto) 0.7, Neut # (Auto) 2.7, Lymph # (Auto) 1.8, [place] # (Auto) 0.3, Eos # (Auto) 0.1, Baso # (Auto) 0.0 06/23/19 05:50: Sodium 135 L, Potassium 4.9, Chloride 106, Carbon Dioxide 27, Anion Gap 6.9, BUN 43 H, Creatinine 2.65 H, Estimated Creat Clear 37, Estimated GFR 25 L, Est GFR ( Amer) 30 L, Glucose 127 H D, Calcium 8.0 L Assessment and Plan (1) Acute kidney injury Current visit: Yes Status: Acute Category: Medical Code(s): N17.9 - Acute kidney failure, unspecified (2) Constipation Current visit: Yes Status: Acute Category: Medical Code(s): K59.00 - Constipation, unspecified (3) Gastritis Current visit: Yes Status: Acute Category: Medical Code(s): K29.70 - Gastritis, unspecified, without bleeding (4) Urinary retention Current visit: Yes Status: Acute Category: Medical Code(s): R33.9 - Retention of urine, unspecified (5) Vomiting Current visit: Yes Status: Acute Category: Medical Code(s): R11.10 - Vomiting, unspecified (6) Prostate enlargement Current visit: Yes Status: Acute Category: Medical Code(s): N40.0 - Benign prostatic hyperplasia without lower urinary tract symptoms
== END 2019-06-23 15:45 | disposition home or self-care (01) | DRG 683 ==
LOC: ER 11:07 → 2ND 11:07
PROVIDERS: ADMIT Emergency Medicine; ATTEND Emergency Medicine
CPT/HCPCS: 36415; 71010; 71045; 74176; 80048; 81001; 82150; 82962; 83690; 84484; 85025; 85610; 96365; 96366; 96375; 97162; 97165; 99285; G0378; J2405